=== PATIENT | male | born 1960 | race Caucasian/White ===

== ENCOUNTER 2018-10-17 08:22 | Outpatient (CLI) | payer OTHER, SELFPAY ==
[2018-10-17 09:14] LABS: #Eosinphils 0.1 thou/uL (0.0-0.7); #Lymphocytes 2.6 thou/uL (1.20-3.40); #Monocytes 0.8 thou/uL (0.11-0.59); %Eosinophils 0.8 % (0.0-10.0); %Lymphocytes 22.3 % (21.0-51.0); %Monocytes 7.1 % (0.0-10.0); %Neutrophils 69.8 % (42.0-75.0); Hemoglobin 13.9 g/dL (14.0-18.0); Mean Corpuscular HGB CONC 33.1 g/dL (32.0-36.0); Mean Corpuscular Hemoglobin 32.8 pg (27.0-31.0); Mean Corpuscular Volume 99.1 fL (78.0-98.0); Mean Platelet Volume 6.7 fL (7.4-10.4); Platelet Count 359 thou/uL (130-400); RBC Distribution Width 10.6 % (11.5-14.5); Red Blood Cell (RBC) Count 4.24 mill/uL (4.70-6.10); White Blood Cell (WBC) Count 11.4 thou/uL (4.8-10.8)
--- NOTE | 2018-10-17 09:24 | RAD ---
Chest 2 views HISTORY: Chest pain. Preop. COMPARISON: 06/21/2012. FINDINGS: Cardiac silhouette and pulmonary vasculature are unremarkable. Mediastinum is midline. Nipp le shadows overlie the lung bases. No confluent airspace consolidation, pneumothorax, or pleural fluid are apparent. IMPRESSION: No active cardiopulmonary abnormalities are demonstrated.
[2018-10-17 12:41] LABS: ALT (SGPT) 21 U/L (8-55); AST (SGOT) 12 U/L (5-34); Albumin 4.1 g/dL (3.5-5.0); Alkaline Phosphatase 88 U/L (40-150); Anion Gap 17 mmol/L (10-20); BUN (Urea Nitrogen) 9 mg/dL (8.4-25.7); Bilirubin, Total 0.2 mg/dL (0.2-1.2); Calc. Creatinine Clearance 0 mL/min (70-130); Calcium 9.7 mg/dL (7.8-10.44); Carbon Dioxide 25 mmol/L (22-29); Chloride 97 mmol/L (98-107); Estimated GFR-MDRD Greater than 90; Globulin 3.2 g/dL (2.4-3.5); Glucose 255 mg/dL (70-105); Potassium 3.9 mmol/L (3.5-5.1); Protein, Total 7.3 g/dL (6.0-8.3); Sodium 135 mmol/L (136-145)
== END 2018-10-17 08:23 | disposition home or self-care (01) ==
LOC: LABBT 08:22
PROVIDERS: ATTEND Internal Medicine Cardiovascular Disease
DX: Z01.818 Encounter for other preprocedural examination (principal); R94.39 Abnormal result of other cardiovascular function study
CPT/HCPCS: 71046; 80053; 85025; 93005; 93010

== ENCOUNTER 2018-10-20 05:42 | Inpatient (IN) | payer OTHER ==
[2018-10-20] MEDS ORDERED: Heparin 10,000 UNITS/1 ML VIAL ONE (06:42)
[2018-10-20 06:59] LABS: Cardiac Risk 3.6 (Less than 4.5)
[2018-10-20] MEDS ORDERED: Midazolam HCl 2 mg/2 ml Vial ONE (07:15)
[2018-10-20] MEDS ORDERED: Fentanyl 100 MCG/2 ML VIAL ONE (07:15)
[2018-10-20] MEDS ORDERED: Protamine Sulfate 50 MG/5 ML VIAL ONE (07:27)
[2018-10-20] MEDS ORDERED: Sodium Chloride 0.9% 200 ML IV PRN (07:57)
[2018-10-20] MEDS ORDERED: Acetaminophen/Codeine 30-300mg Tablet PO PRN ×2 (07:57)
[2018-10-20] MEDS ORDERED: Nitroglycerin 0.4 MG TAB (25 Tab Bottle) SL PRN (07:57)
[2018-10-20] MEDS ORDERED: Sodium Chloride 0.9% 1,000 ML IV SCH (08:00)
[2018-10-20] MEDS ORDERED: Cilostazol 100 MG TAB PO SCH (09:00)
[2018-10-20] MEDS ORDERED: Aspirin 81 mg Enteric Coated Tablet PO SCH (09:00)
[2018-10-20] MEDS: Lisinopril/Hydrochlorothiazide 20/25 mg Tablet PO SCH (10:04)
[2018-10-20] MEDS: Gabapentin 300 MG CAP PO SCH ×2 (10:04→20:32)
[2018-10-20] MEDS ORDERED: Iopamidol 370 76% 100 ML VIAL ONE (11:29)
[2018-10-20] MEDS ORDERED: Iopamidol 370 76% 50 ML VIAL FS ONE (11:29)
[2018-10-20] MEDS: glipiZIDE 5 MG TAB PO SCH (16:08)
[2018-10-20] MEDS ORDERED: Communication Order-Pharmacy FS ONE (17:27)
[2018-10-20 17:57] LABS: Hemoglobin A1c 8.2 % (4.0-6.0)
[2018-10-20] MEDS ORDERED: Calcium Carbonate 500 MG ChewTAB PO PRN (18:02)
[2018-10-20] MEDS ORDERED: Dextrose 50% Abboject 50 ML SYRINGE SLOW IVP PRN (18:02)
[2018-10-20] MEDS ORDERED: Benzonatate 100 MG CAP PO PRN (18:02)
[2018-10-20] MEDS ORDERED: Ondansetron ODT 4 MG TAB PO PRN (18:02)
[2018-10-20] MEDS ORDERED: Sodium Chloride 0.65% Nasal 44 ML BOT EA NARE PRN (18:02)
[2018-10-20] MEDS ORDERED: hydrALAZINE 20 MG/ML VIAL SLOW IVP PRN (18:02)
[2018-10-20] MEDS ORDERED: Diabetic Tussin 200 MG/10 ML UDCUP PO PRN (18:02)
[2018-10-20] MEDS ORDERED: Bisacodyl 5 MG TAB PO PRN (18:02)
[2018-10-20] MEDS ORDERED: Dextrose 5% in Water 1,000 ML IV PRN (18:02)
[2018-10-20] MEDS ORDERED: Ondansetron PF 4 MG/2 ML Vial IVP PRN (18:02)
[2018-10-20] MEDS ORDERED: cloNIDine 0.1 MG TAB PO PRN (18:02)
[2018-10-20] MEDS ORDERED: HumaLOG 300 UNITS/3 ML VIAL SC PRN ×2 (18:02)
[2018-10-20] MEDS ORDERED: Acetaminophen 500 MG TAB PO PRN (18:02)
--- NOTE | 2018-10-20 18:30 | PDOC.PN ---
- Subjective Encounter Start Date: 10/20/18 Encounter Start Time: 18:28 - Objective Vital Signs & Weight: Vital Signs (12 hours) Temp Pulse Resp BP Pulse Ox 10/20/18 16:02 97.4 F L 80 18 162/81 H 92 L 10/20/18 11:26 97.9 F 68 18 145/73 H 92 L 10/20/18 09:25 98.0 F 74 17 158/78 H 92 L Weight Weight 203 lb 9.6 oz Dx/Plan - Plan * .
[2018-10-20] MEDS ORDERED: PROVENTIL INHALER 6.7 G (200 INHALATIONS) INH PRN (18:35)
--- NOTE | 2018-10-20 19:15 | CON ---
DATE OF CONSULTATION: 10/20/2018 PRIMARY CARE PHYSICIAN: Dionisio Tony MD REASON FOR CONSULTATION: Medical management of diabetes. HISTORY OF PRESENTING ILLNESS: Mr. Richmond is a very pleasant 57-year-old male with past medical history of diabetes mellitus with neuropathy as well as history of peripheral arterial disease, hypertension, and dyslipidemia, who presented as a direct admit after cardiac catheterization. History is mainly obtained by the patient himself and electronic medical records have been reviewed. Mr. Richmond reports that he was referred to Dr. Hidalgo in the [facility]iology [facility] by his primary care physician about 2 or 3 months ago. He was sent over there because of some issues with circulation of Mr. Richmond's legs. He reports that he got workup done by Dr. Hidalgo in the office what sounds like GUILLERMINA and maybe angiography and he was found to have some arterial occlusion in his legs. I am not sure exactly how much and what blockages he has had. He reports during that workup, he underwent a treadmill stress test, which was reportedly abnormal, so he was to undergo cardiac catheterization electively. This was done today by Dr. Hidalgo and he is now admitted to tele floor as a cardiac cath showed severe 3-vessel coronary artery disease and he is scheduled to undergo a coronary artery bypass graft tomorrow morning. Internal Medicine Team has been consulted for medical management. At this time, the patient has no chest pain, orthopnea, PND, shortness of breath, palpitations, or lightheadedness. No paresthesias. Denies any dyspnea on exertion in the last few months either. He does report that his legs are numb because of poor circulation. PAST MEDICAL HISTORY: 1. Diabetes mellitus. 2. Hypertension. 3. Peripheral arterial disease. 4. Dyslipidemia. 5. Peripheral neuropathy. PAST SURGICAL HISTORY: Cardiac catheterization 10/20/2018, which shows 3-vessel coronary artery disease. PSYCHIATRIC HISTORY: No anxiety. No depression. SOCIAL HISTORY: The patient is a chronic smoker, smoking about a half to one pack per day. No history of drug or alcohol abuse. FAMILY HISTORY: No significant family history of diabetes or stroke. CODE STATUS: Full code discussed with the patient. ALLERGIES: NO KNOWN MEDICATION ALLERGIES. HOME MEDICATIONS: 1. Glipizide XL 5 mg p.o. b.i.d. 2. Gabapentin 1 tablet p.o. b.i.d. 3. Cilostazol 50 mg p.o. b.i.d. 4. Atorvastatin 40 mg daily. 5. Lisinopril/hydrochlorothiazide 20/25 mg daily. 6. Metformin 1000 mg p.o. b.i.d. 7. Lisinopril 20 mg daily. 8. Ascorbic acid 500 mg daily. 9. Xarelto one tablet p.o. b.i.d. LABORATORY DATA: Labs are reviewed from today. His hemoglobin A1c is 8.2. His last hemoglobin A1c was 8.3 in July 2018 and his hemoglobin A1c has been running around 7.5 the entire last 2 or 3 years. Lipid panel is unremarkable with triglycerides 127, total cholesterol 109, LDL 54, HDL 30. His CBC and serum chemistries are reviewed from 10/17/2018; WBCs 11.4, hemoglobin 13.9, platelet count 359. Sodium 135, potassium 3.9, BUN 9, creatinine 0.69. Blood sugar on 10/17/2018, 255. Liver enzymes unremarkable. Chest x-ray done on 10/17/2018, by my review shows no evidence of pleural effusion, edema, or infiltrate. PHYSICAL EXAMINATION: VITAL SIGNS: Most recent temperature 97.4, pulse of 80, respirations 18, saturating 92% on room air, and blood pressure 162/81. GENERAL: No acute distress. He is eating dinner. He is very pleasant, awake, alert, and oriented x3. HEENT: Mucous membrane is moist and pink. No oropharyngeal exudate or erythema. Head is normocephalic and atraumatic. Pupils are equal and reactive to light and accommodation. Extraocular movement intact. NECK: Supple without any lymphadenopathy, JVD, or bruit. CHEST: Clear to auscultation without any wheezing, rales, or rhonchi. Rate rhythm is regular without any murmurs, rubs, or gallops. ABDOMEN: Soft, nontender, and nondistended with positive bowel sounds. EXTREMITIES: Free of any cyanosis, clubbing, or edema. NEUROLOGIC: Nonfocal. SKIN: Free of any rashes or bruises. Feels warm and dry to touch. PSYCHIATRIC: Normal affect. IMPRESSION AND PLAN: 1. Three-vessel coronary artery disease. The patient is on aspirin, atorvastatin, as well as lisinopril and these will be continued. He has been evaluated by Cardiovascular Surgery by Dr. Alfredo and is on scheduled to undergo coronary artery bypass graft in the morning. He is n.p.o. after midnight. We will follow along. Further care as per Cardiology and Cardiothoracic Surgery. 2. Diabetes mellitus, it is uncontrolled. At this time, we will hold the metformin to avoid any acidosis or renal insufficiency, and continue the glipizide. We will add moderate insulin sliding scale and check blood sugar before meals and at bedtime. 3. Dyslipidemia. Continue atorvastatin for now. 4. History of peripheral arterial disease. Continue aspirin, statin, and Pletal. Plan as per Cardiovascular Surgery. 5. Hypertension, currently controlled. We will resume his lisinopril/hydrochlorothiazide. At this time, he has not been started on any beta carmella and we will defer the decision to Cardiology. 6. We will check labs including CBC and BMP in the morning. 7. Add p.r.n. antihypertensives and other p.r.n. medication including nebulizer and albuterol as needed for shortness of breath or wheezing. 8. Peripheral neuropathy. Restart Neurontin 300 mg p.o. b.i.d. DISPOSITION: Mr. Richmond is currently being admitted under Cardiology services for coronary artery disease requiring coronary artery bypass graft tomorrow morning. Internal Medicine Team will follow along. Thank you for letting us participate in the care of your patient. Job ID: [id number]
[2018-10-20] MEDS ORDERED: Lisinopril 20 MG TAB PO SCH (21:00)
[2018-10-20] MEDS ORDERED: Atorvastatin Calcium 40 MG TAB PO SCH (21:00)
[2018-10-20] MEDS ORDERED: Senokot S 8.6-50 MG TAB PO PRN (21:00)
--- NOTE | 2018-10-21 00:17 | CON ---
DATE OF CONSULTATION: 10/20/2018 HISTORY: This is a 57-year-old gentleman, referred to Dr. Hidalgo in July of this year for bilateral calf claudications, right greater than left, as well as some numbness in his feet. His EKG showed poor R-wave progression, and a nuclear stress study was done, showing an ejection fraction of 43% with inferior wall scar and some anterior wall ischemia. He underwent cardiac catheterization today, showing severe 3-vessel coronary artery disease with subtotal right coronary stenosis with distal PDA disease as well and [id number] and [id number] filling of his posterior lateral system. His LAD had severe calcification in its proximal third with significant stenosis in the ostium. Circumflex demonstrated 2 obtuse marginals. The first of which was rather small with a severe stenosis as well as second with significant disease. Small diagonal with disease. LVEF appeared preserved on left ventricular evaluation. PAST MEDICAL HISTORY: Significant for diabetes mellitus, poorly controlled with hemoglobin A1c is in the 7 to 8 range; hypertension; dyslipidemia; longstanding smoking history including 2 packs per day until about July of this year when he has cut back and now smoking about 2 cigarettes a day; and he used to drink regularly, but stopped this about 2 months ago. REVIEW OF SYSTEMS: He has claudication at 50 yards. He has nocturia x3 to x4, which is improved since he stopped drinking. Denies constipation or diarrhea. He has no symptoms to suggest a TIA or stroke. He did get chest tightness and dyspnea with his stress test, but in general, denies chest tightness. He does admit to wheezing and productive cough, particularly when he lies down. PHYSICAL EXAMINATION: GENERAL: He is alert, cooperative gentleman, although a rather poor historian with no real grasp of his medical problems that I can tell. His weight is listed at 203 pounds, height 5 feet 11 inches. NECK: He has no carotid bruits. LUNGS: He has upper airway rhonchi with no wheezes. CARDIAC: Distant heart sounds. Regular rhythm. No murmurs. ABDOMEN: Obese, nontender. I am unable to palpate any aneurysm. EXTREMITIES: He has a palpable left femoral pulse. He has a dressing on the right groin from catheterization today. He has no popliteal or pedal pulses. His left foot is pink and right foot is slightly paler. He has no peripheral edema. PLAN: At this time, for multivessel coronary bypass grafting to the LAD, second OM, PDA, and possibly first OM. Informed consent has been obtained. Job ID: [id number]
[2018-10-21] MEDS: Lisinopril/Hydrochlorothiazide 20/25 mg Tablet PO SCH (05:44)
[2018-10-21] MEDS ORDERED: CEFAZOLIN 2 GM in Premix Bag 1 BAG IVPB SCH (06:00)
[2018-10-21] MEDS ORDERED: Albumin 5% 500 ML ONE (06:15)
[2018-10-21] MEDS ORDERED: Heparin 10,000 UNITS/1 ML VIAL 30,000 UNITS in Sodium Chloride 0.9% 1,000 ML FS SCH (07:00)
[2018-10-21] MEDS ORDERED: Fentanyl 250 MCG/5 ML VIAL ONE (07:20)
[2018-10-21] MEDS ORDERED: Midazolam HCl 5 mg/5 ml Vial ONE (07:20)
[2018-10-21] MEDS ORDERED: Insulin Regular 300 UNITS/3 ML VIAL ONE (08:19)
[2018-10-21] MEDS ORDERED: Phenylephrine HCL 10 MG/ML VIAL ONE (10:26)
[2018-10-21] MEDS ORDERED: PHENYLEPHRINE-NS 100 MCG/ML 10 ML SYRINGE ONE ×2 (10:26→17:35)
[2018-10-21] MEDS ORDERED: Promethazine HCl 25 MG/ML VIAL IM PRN (11:43)
[2018-10-21] MEDS ORDERED: Potassium Chloride 20 MEQ/100 ML PREMIX BAG IVPB PRN (11:43)
[2018-10-21] MEDS ORDERED: Mag-Al 1200 mg/1200 mg/30 ML UDCUP PO PRN (11:43)
[2018-10-21] MEDS ORDERED: Hetastarch 6% 500 ML 500 ML IVPB PRN (11:43)
[2018-10-21] MEDS ORDERED: Bisacodyl 5 MG TAB PO PRN (11:43)
[2018-10-21] MEDS ORDERED: Nitroglycerin 50 MG/250 ML BOT 250 ML IVPB PRN (11:43)
[2018-10-21] MEDS ORDERED: Acetaminophen 325 MG TAB PO PRN (11:43)
[2018-10-21] MEDS ORDERED: Guaifenesin DM 100-10/5 ML UDCUP PO PRN (11:43)
[2018-10-21] MEDS ORDERED: Bisacodyl 10 MG SUPP PR PRN (11:43)
[2018-10-21] MEDS ORDERED: DOPamine 400 MG/D5W 250 ML 250 ML IVPB PRN (11:43)
[2018-10-21] MEDS ORDERED: Ondansetron PF 4 MG/2 ML Vial IVP PRN (11:43)
[2018-10-21] MEDS ORDERED: hydrALAZINE 20 MG/ML VIAL SLOW IVP PRN (11:43)
[2018-10-21] MEDS ORDERED: Morphine 2 MG/ML SYRINGE SLOW IVP PRN (11:43)
[2018-10-21] MEDS ORDERED: Fentanyl 100 MCG/2 ML VIAL SLOW IVP PRN ×2 (11:43)
[2018-10-21] MEDS ORDERED: niCARdipine HCl 25 MG in Sodium Chloride 0.9% 250 ML 240 ML IVPB PRN (11:43)
[2018-10-21] MEDS ORDERED: Post-Op Insulin Drip Protocol IVPB ONE (11:43)
[2018-10-21] MEDS ORDERED: HUMULIN R 100 UNITS in Sodium Chloride 0.9% 100 ML IVPB SCH (11:56)
[2018-10-21] MEDS ORDERED: Insulin Regular 300 UNITS/3 ML VIAL SC PRN (11:56)
[2018-10-21] MEDS ORDERED: Dextrose 50% Abboject 50 ML SYRINGE SLOW IVP PRN (11:56)
[2018-10-21] MEDS ORDERED: Dextrose 5% in Water 1,000 ML IV PRN (11:56)
[2018-10-21] MEDS ORDERED: Magnesium 2 GM/50 ML 2 GM in Premix Bag 1 BAG IVPB SCH (12:15)
[2018-10-21 12:24] LABS: Actual Bicarbonate (HCO3a) 22.8 mEq/L (22-28); Base Excess (BEa) -3.8 mEq/L (-2.0 to +3.0); CO2 Tension 47.8 mmHg (35.0-45.0); Calcium, Ionized 1.11 mmol/L (1.12-1.30); Carboxyhemoglobin (COHb) 1.2 gm% (0.0-3.0); Hemoglobin (Hb) 12.1 g/dL (14.0-18.0); O2 Tension (PaO2) 128.4 mmHg (80.0-100.0); Potassium - ABG Lab 3.96 mmol/L (3.70-5.30)
[2018-10-21 12:26] LABS: Puncture Site ALINE
--- NOTE | 2018-10-21 12:32 | RAD ---
XR Chest 1 View Portable History: [Open-heart surgery] Comparison: Chest radiograph October 17, 2018 Findings: The patient is intubated with endotracheal tube tip at the level of clavicles. Right subcla vian central venous catheter is present. Subclavian central venous catheter sits at the inferior SVC. Mild atelectasis within lingula. No significant pneumothorax. New multiple midline sternotomy wires. Impression: Expected postoperative findings without complication.
[2018-10-21 12:33] LABS: #Eosinphils 0.1 thou/uL (0.0-0.7); #Lymphocytes 1.5 thou/uL (1.20-3.40); #Monocytes 0.8 thou/uL (0.11-0.59); #Neutrophils 17.6 thou/uL (1.40-6.50); %Basophils 0.2 % (0.0-1.0); %Eosinophils 0.4 % (0.0-10.0); %Lymphocytes 7.5 % (21.0-51.0); %Monocytes 3.8 % (0.0-10.0); %Neutrophils 88.1 % (42.0-75.0); Hemoglobin 11.5 g/dL (14.0-18.0); Mean Corpuscular HGB CONC 33.4 g/dL (32.0-36.0); Mean Corpuscular Hemoglobin 33.3 pg (27.0-31.0); Mean Corpuscular Volume 99.6 fL (78.0-98.0); Mean Platelet Volume 6.5 fL (7.4-10.4); Platelet Count 222 thou/uL (130-400); RBC Distribution Width 10.6 % (11.5-14.5); Red Blood Cell (RBC) Count 3.45 mill/uL (4.70-6.10); White Blood Cell (WBC) Count 19.9 thou/uL (4.8-10.8)
[2018-10-21] MEDS: glipiZIDE 5 MG TAB PO SCH (12:35)
[2018-10-21] MEDS: Ketorolac Tromethamine 30 MG/ML VIAL IVP SCH ×3 (12:37→23:56)
[2018-10-21] MEDS: Sodium Chloride 0.9% 1,000 ML IV SCH ×2 (12:40→22:52)
[2018-10-21 12:54] LABS: Anion Gap 13 mmol/L (10-20); BUN (Urea Nitrogen) 10 mg/dL (8.4-25.7); Calc. Creatinine Clearance 135 mL/min (70-130); Calcium 7.8 mg/dL (7.8-10.44); Carbon Dioxide 23 mmol/L (22-29); Chloride 107 mmol/L (98-107); Estimated GFR-MDRD Greater than 90; Glucose 157 mg/dL (70-105); Potassium 4.4 mmol/L (3.5-5.1); Sodium 139 mmol/L (136-145)
[2018-10-21 13:11] LABS: INR-International Normal Ratio 1.3; PTT 32.2 SEC (22.9-36.1); Prothrombin Time 16.5 SEC (12.0-14.7)
[2018-10-21] MEDS: CEFAZOLIN 2 GM in Premix Bag 1 BAG IVPB SCH ×2 (14:38→22:51)
[2018-10-21 15:22] LABS: Actual Bicarbonate (HCO3a) 23.6 mEq/L (22-28); Base Excess (BEa) -1.9 mEq/L (-2.0 to +3.0); CO2 Tension 43.4 mmHg (35.0-45.0); Calcium, Ionized 1.07 mmol/L (1.12-1.30); Carboxyhemoglobin (COHb) 0.9 gm% (0.0-3.0); Hemoglobin (Hb) 11.2 g/dL (14.0-18.0); O2 Tension (PaO2) 100.1 mmHg (80.0-100.0); Potassium - ABG Lab 3.91 mmol/L (3.70-5.30); pH, Arterial 7.35 (7.35-7.45)
[2018-10-21 15:37] LABS: Puncture Site ALINE
--- NOTE | 2018-10-21 16:10 | PDOC.PN ---
- Subjective Encounter Start Date: 10/21/18 Encounter Start Time: 16:09 Subjective: s/p 4 vessel CABG today and extubated.seen in CCU -: feels OK.care discussed w at bedside. -: no SOB/CP/dizziness etc - Objective MAR Reviewed: Yes Vital Signs & Weight: Vital Signs (12 hours) Temp Pulse Resp BP Pulse Ox 10/21/18 15:25 96 10/21/18 15:20 70 97/48 L 10/21/18 13:53 12 10/21/18 13:51 71 120/51 L 10/21/18 13:00 97.5 F L 10/21/18 12:30 12 99 10/21/18 12:20 72 124/49 L 10/21/18 05:44 68 146/75 H Weight Weight 203 lb 9.6 oz Most Recent Monitor Data Heart Rate from ECG 77 NIBP 113/65 NIBP BP-Mean 81 Respiration from ECG 18 SpO2 94 I&O: 10/20/18 10/21/18 10/22/18 06:59 06:59 06:59 Intake Total 2700 1050 Output Total 1250 585 Balance 1450 465 Result Diagrams: 10/21/18 12:18 10/21/18 12:18 Additional Labs: Accuchecks 10/21/18 10/21/18 10/21/18 13:11 12:17 10:33 POC Glucose 147 H 144 H 171 H 10/21/18 10/21/18 10/21/18 09:28 08:12 05:50 POC Glucose 167 H 184 H 157 H 10/20/18 20:37 POC Glucose 169 H Phys Exam - Physical Examination Constitutional: NAD awake and alert HEENT: PERRLA, moist MMs, sclera anicteric, oral pharynx no lesions Neck: no nodes, no JVD, supple, full ROM Respiratory: no wheezing, no rales, no rhonchi, clear to auscultation bilateral Chest tube in place Cardiovascular: RRR, no significant murmur Gastrointestinal: soft, non-tender, no distention, positive bowel sounds Musculoskeletal: no edema, pulses present Neurological: non-focal, normal sensation, moves all 4 limbs Psychiatric: normal affect, A&O x 3 Skin: no rash Dx/Plan (1) CAD (coronary artery disease) Code(s): I25.10 - ATHSCL HEART DISEASE OF [place] CORONARY ARTERY W/O ANG PCTRS Status: Chronic Comment: s/p CABG 10/21/18. cont ASA,statin.Per primary cardiology team.HD stable and extubated (2) DM2 (diabetes mellitus, type 2) Status: Chronic Comment: Uncontrolled. on Insulin drip fornow per Post-op protocol (3) HTN (hypertension) Code(s): I10 - ESSENTIAL (PRIMARY) HYPERTENSION Status: Chronic Comment: restart Lisinopril/HCTZ when OK w cardiology and BP better.monitor (4) PAD (peripheral artery disease) Code(s): I73.9 - PERIPHERAL VASCULAR DISEASE, UNSPECIFIED Status: Chronic Comment: cont ASA,statin.restart Pletal if Ok w Cardiology - Plan plan discussed w/ family, respiratory therapy, incentive spirometry, DVT proph w /SCDs HD stable post CABG X4 vessel -: IM team will follow -: AM labs * .
[2018-10-21] MEDS: HYDROcodone/Acetaminophen 5/325 mg Tablet PO PRN ×3 (16:35→22:50)
[2018-10-21] MEDS ORDERED: Magnesium 5 GM/10 ML VIAL ONE (17:35)
[2018-10-21] MEDS ORDERED: Heparin 30,000 units/30 ml VIAL ONE (17:35)
[2018-10-21] MEDS ORDERED: Rocuronium Bromide 10 MG/ML (10ML VIAL) ONE (17:35)
[2018-10-21] MEDS ORDERED: Calcium Chloride 1 GM/10 ML Abboject SYRINGE ONE (17:35)
[2018-10-21] MEDS ORDERED: Potassium Chloride 60 MEQ/30 ML VIAL ONE (17:35)
[2018-10-21] MEDS ORDERED: Papaverine 60 MG/2 ML VIAL ONE (17:35)
[2018-10-21] MEDS ORDERED: Heparin 5,000 UNITS/ML VIAL ONE (17:35)
[2018-10-21] MEDS ORDERED: Thrombin 5000 UNITS/5 ML VIAL ONE (17:35)
[2018-10-21] MEDS ORDERED: Succinylcholine Chloride 20 MG/ML 10 ml SYRINGE FS ONE (17:35)
[2018-10-21] MEDS ORDERED: Mannitol 12.5 GM/50 ML ONE (17:35)
[2018-10-21] MEDS ORDERED: ePHEDrine 50 MG/ML VIAL ONE (17:35)
[2018-10-21] MEDS ORDERED: Protamine Sulfate 250 MG/25 ML VIAL ONE (17:35)
[2018-10-21] MEDS ORDERED: Aminocaproic Acid 5 GM/20 ML VIAL ONE (17:35)
[2018-10-21] MEDS ORDERED: Glycopyrrolate 0.2 MG/ML 5 ML SYRINGE ONE (17:35)
[2018-10-21] MEDS ORDERED: PROPOFOL 200 MG/20 ML VIAL ONE (17:35)
[2018-10-21] MEDS ORDERED: Vecuronium 10 MG VIAL ONE (17:35)
[2018-10-21] MEDS ORDERED: Sodium Bicarb 50 MEQ/50 ML VIAL ONE (17:35)
[2018-10-21] MEDS ORDERED: Cardioplegic Soln 1,000 ML BAG ONE (17:35)
[2018-10-21 18:11] LABS: Hemoglobin 10.4 g/dL (14.0-18.0)
[2018-10-21 18:24] LABS: Potassium 4.1 mmol/L (3.5-5.1)
[2018-10-21] MEDS ORDERED: Atorvastatin Calcium 20 MG TAB PO SCH (21:00)
[2018-10-21] MEDS ORDERED: Famotidine/PF 20 mg/2ml Vial SLOW IVP SCH (21:00)
[2018-10-22] MEDS: HYDROcodone/Acetaminophen 5/325 mg Tablet PO PRN ×4 (03:58→20:18)
[2018-10-22 05:02] LABS: #Lymphocytes 1.7 thou/uL (1.20-3.40); #Monocytes 0.9 thou/uL (0.11-0.59); #Neutrophils 9.6 thou/uL (1.40-6.50); %Basophils 0.3 % (0.0-1.0); %Eosinophils 0.2 % (0.0-10.0); %Lymphocytes 13.7 % (21.0-51.0); %Monocytes 7.1 % (0.0-10.0); %Neutrophils 78.7 % (42.0-75.0); Hemoglobin 10.3 g/dL (14.0-18.0); Mean Corpuscular HGB CONC 33.3 g/dL (32.0-36.0); Mean Corpuscular Hemoglobin 33.5 pg (27.0-31.0); Platelet Count 222 thou/uL (130-400); RBC Distribution Width 10.6 % (11.5-14.5); Red Blood Cell (RBC) Count 3.07 mill/uL (4.70-6.10); White Blood Cell (WBC) Count 12.2 thou/uL (4.8-10.8)
[2018-10-22 05:19] LABS: Anion Gap 11 mmol/L (10-20); BUN (Urea Nitrogen) 11 mg/dL (8.4-25.7); Calc. Creatinine Clearance 166 mL/min (70-130); Calcium 7.9 mg/dL (7.8-10.44); Carbon Dioxide 24 mmol/L (22-29); Chloride 106 mmol/L (98-107); Estimated GFR-MDRD Greater than 90; Glucose 111 mg/dL (70-105); Sodium 137 mmol/L (136-145)
[2018-10-22] MEDS: Ketorolac Tromethamine 30 MG/ML VIAL IVP SCH (05:41)
[2018-10-22] MEDS: CEFAZOLIN 2 GM in Premix Bag 1 BAG IVPB SCH (06:23)
[2018-10-22] MEDS ORDERED: Nitroglycerin 0.4 MG TAB (25 Tab Bottle) SL PRN (06:55)
[2018-10-22] MEDS ORDERED: Artificial Tears 18 DROP/0.9 ML EA EYE PRN (06:55)
[2018-10-22] MEDS ORDERED: Bisacodyl 10 MG SUPP PR PRN (06:55)
[2018-10-22] MEDS ORDERED: Guaifenesin DM 100-10/5 ML UDCUP PO PRN (06:55)
[2018-10-22] MEDS ORDERED: diphenhydrAMINE 25 MG CAP PO PRN (06:55)
[2018-10-22] MEDS ORDERED: Bisacodyl 5 MG TAB PO PRN (06:55)
[2018-10-22] MEDS ORDERED: Zolpidem Tartrate 5 MG TAB PO PRN (06:55)
[2018-10-22] MEDS ORDERED: Dextrose 50% Abboject 50 ML SYRINGE SLOW IVP PRN ×2 (06:55→14:55)
[2018-10-22] MEDS ORDERED: Mineral Oil ENEMA PR PRN (06:55)
[2018-10-22] MEDS ORDERED: Dextrose 5% in Water 1,000 ML IV PRN ×2 (06:55→14:55)
[2018-10-22] MEDS ORDERED: Mag-Al 1200 mg/1200 mg/30 ML UDCUP PO PRN (06:55)
--- NOTE | 2018-10-22 07:35 | RAD ---
CHEST 1 VIEW: Date: 10/22/18 INDICATION: Status post open heart surgery. COMPARISON: Prior exam dated 10/21/18. IMPRESSION: Patient has been extubated. Right subclavian central venous catheter is unchanged. Mediastinal drains have been removed. Mild cardiomegaly is stable. Lungs are clear. No pneumothorax is evident. POS: BH
[2018-10-22] MEDS ORDERED: HYDROcodone/Acetaminophen 5/325 mg Tablet PO PRN (08:00)
[2018-10-22] MEDS: Famotidine 20 MG TAB PO SCH ×2 (08:06→20:20)
[2018-10-22] MEDS: Ascorbic Acid 500 mg Chewable Tablet PO SCH (08:06)
[2018-10-22] MEDS: Aspirin 325 mg Enteric Coated Tablet PO SCH (08:06)
[2018-10-22] MEDS: Gabapentin 300 MG CAP PO SCH ×2 (08:06→20:20)
[2018-10-22] MEDS ORDERED: Aspirin 325 MG TAB PO SCH (09:00)
[2018-10-22] MEDS ORDERED: Ipratropium Bromide 0.03% Nasal Inhaler 30 ml Bottle EA NARE SCH (11:15)
[2018-10-22] MEDS ORDERED: guaiFENesin ER 600 MG TAB PO SCH (11:15)
--- NOTE | 2018-10-22 13:50 | CON ---
DATE OF CONSULTATION: 10/22/2018 HISTORY OF PRESENT ILLNESS: Mr. Richmond is a 58-year-old gentleman with diabetes , who underwent coronary artery bypass grafting yesterday. He was weaned and extubated per protocol. He was seen because of his presence in Critical Care Unit. His only complaint is that he is having sinus drainage and having trouble clearing and coughing all this stuff up. He is actually using his incentive spirometer and is getting up to 2000 on that. He reports only minimal chest discomfort after surgery. He is a smoker, but was down to 2 to 3 cigarettes a day prior to admission and says he has done with tobacco. PAST MEDICAL HISTORY: Remarkable for; 1. Diabetes. 2. Hypertension. 3. Lipid disorder. 4. Long history of tobacco use, but no history of COPD or asthma. 5. Long history of alcohol use, but none for a month. He said he quit drinking because his told him the carbohydrates and beer turned his sugar and he was having trouble controlling his diabetes. FAMILY HISTORY: Negative for lung disease in early age. SOCIAL HISTORY: He does mention that he is smoking up until admission. He has not had alcohol in a month. ALLERGIES: HE REPORTS NO DRUG ALLERGIES. REVIEW OF SYSTEMS: Ten-point review of systems completed, otherwise negative. PHYSICAL EXAMINATION: GENERAL: He is lying flat in bed with no tachypnea or complaints of shortness of breath. VITAL SIGNS: He is afebrile. Respiratory rates in the teens, oximetry is 94% on 3 L, blood pressure is 146/75. HEENT: Pupils are equal. Sclerae are anicteric. Extraocular movements are full. NECK: Supple. No lymphadenopathy. LUNGS: Clear. HEART: Regular rhythm. S1, S2 normal. ABDOMEN: Soft and nontender. EXTREMITIES: Without clubbing, cyanosis, or edema. LABORATORY AND DIAGNOSTIC DATA: White count 12.2, hemoglobin 10.3, platelets 222. Sodium 137, potassium 4, chloride 106, bicarb 24, BUN 11, and creatinine 0.66. Blood gas prior to extubation; pH of 7.35, pCO2 of 43, pO2 of 100. Chest radiograph shows clear lung francisco. IMPRESSION AND PLAN: 1. History of tobacco with no clinical history suggestive of chronic obstructive pulmonary disease. 2. Status post coronary artery bypass grafting, doing well postextubation. 3. Rhinitis and sinus issues prior to admission, nasal ipratropium may help with that. Guaifenesin and nebulized treatments may also help with facilitation of secretion clearance. I will be following for a few days until we are sure he is stable from a pulmonary standpoint. This is a 70 minute consult with greater than 50% of time spent on unit coordinating care. Job ID: [id number] MTDD
[2018-10-22] MEDS ORDERED: HumaLOG 300 UNITS/3 ML VIAL SC PRN (14:55)
--- NOTE | 2018-10-22 14:56 | PDOC.PN ---
- Subjective Encounter Start Date: 10/22/18 Encounter Start Time: 14:54 Subjective: feels better but does not feel hungry -: not much pain at incision site - Objective MAR Reviewed: Yes Vital Signs & Weight: Vital Signs (12 hours) Temp Resp BP Pulse Ox 10/22/18 08:00 97.9 F 12 146/75 H 94 L 10/22/18 07:30 94 L Weight Weight 3.4 oz Most Recent Monitor Data Heart Rate from ECG 76 NIBP 141/69 NIBP BP-Mean 93 Respiration from ECG 17 SpO2 92 I&O: 10/21/18 10/22/18 10/23/18 06:59 06:59 06:59 Intake Total 2700 1954.4 480 Output Total 1250 1585 160 Balance 1450 369.4 320 Result Diagrams: 10/22/18 04:00 10/22/18 04:00 Additional Labs: Accuchecks 10/22/18 10/22/18 10/22/18 11:10 06:05 04:57 POC Glucose 136 H 116 H 112 H 10/22/18 10/22/18 10/22/18 02:56 02:05 00:58 POC Glucose 108 127 H 114 H 10/22/18 10/21/18 10/21/18 00:01 23:02 22:01 POC Glucose 107 86 101 10/21/18 10/21/18 21:01 20:02 POC Glucose 108 129 H Phys Exam - Physical Examination Constitutional: NAD HEENT: PERRLA, moist MMs, sclera anicteric, oral pharynx no lesions Neck: no nodes, no JVD, supple, full ROM Respiratory: no wheezing, no rales, no rhonchi, clear to auscultation bilateral Cardiovascular: RRR, no significant murmur Chest tube in place. Gastrointestinal: soft, non-tender, no distention, positive bowel sounds Musculoskeletal: no edema, pulses present Neurological: non-focal, normal sensation, moves all 4 limbs Psychiatric: normal affect, A&O x 3 Skin: no rash Dx/Plan (1) CAD (coronary artery disease) Code(s): I25.10 - ATHSCL HEART DISEASE OF [place] CORONARY ARTERY W/O ANG PCTRS Status: Chronic Comment: s/p CABG 10/21/18. cont ASA,statin.Per primary cardiology team.HD stable and extubated (2) DM2 (diabetes mellitus, type 2) Status: Chronic Comment: Uncontrolled. insulin drip stopped by primary team. will start ISS ,accucheck achs (3) HTN (hypertension) Code(s): I10 - ESSENTIAL (PRIMARY) HYPERTENSION Status: Chronic Comment: restart Lisinopril/HCTZ when OK w cardiology and BP better.monitor (4) PAD (peripheral artery disease) Code(s): I73.9 - PERIPHERAL VASCULAR DISEASE, UNSPECIFIED Status: Chronic Comment: cont ASA,statin.restart Pletal if Ok w Cardiology - Plan plan discussed w/ family, PT/OT, respiratory therapy, incentive spirometry, DVT proph w/SCDs Blood sugar under control.cont ISS and monitor -: AM labs -: HD stable -: IM team will follow * . Review of Systems - Review of Systems Constitutional: weakness, malaise. negative: fever, chills, sweats, other ENT: negative: Ear Pain, Ear Discharge, Nose Pain, Nose Discharge, Nose Congestion, Mouth Pain, Mouth Swelling, Throat Pain, Throat Swelling, Other Respiratory: negative: Cough, Dry, Shortness of Breath, Hemoptysis, SOB with Excertion, Pleuritic Pain, Sputum, Wheezing Cardiovascular: negative: chest pain, palpitations, orthopnea, paroxysmal nocturnal dyspnea, edema, light headedness, other Gastrointestinal: negative: Nausea, Vomiting, Abdominal Pain, Diarrhea, Constipation, Melena, Hematochezia, Other Genitourinary: negative: Dysuria, Frequency, Incontinence, Hematuria, Retention , Other Musculoskeletal: negative: Neck Pain, Shoulder Pain, Arm Pain, Back Pain, Hand Pain, Leg Pain, Foot Pain, Other Skin: negative: Rash, Lesions, [place], Bruising, Other Neurological: negative: Weakness, Numbness, Incoordination, Change in Speech, Confusion, Seizures, Other - Medications/Allergies Allergies/Adverse Reactions: Allergies Allergy/AdvReac Type Severity Reaction Status Date / Time No Known Allergies Allergy Verified 10/20/18 10:17 Medications: Current Medications Hydrocodone Bitart/Acetaminophen ([place] 5/325) 1 tab PO Q4H PRN PRN Reason: Mild-Moderate Pain (1-5) Hydrocodone Bitart/Acetaminophen ([place] 5/325) 2 tab PO Q4H PRN PRN Reason: Moderate to Severe Pain (6-10) Last Admin: 10/22/18 08:05 Dose: 2 tab Al Hydroxide/Mg Hydroxide (Maalox) 30 ml PO Q4H PRN PRN Reason: Indigestion Albuterol/Ipratropium (Duoneb) 3 ml NEB [id number] PRN PRN Reason: SHORTNESS OF BREATH Albuterol/Ipratropium (Duoneb) 3 ml IPPB TID [facility] Artificial Tears (Tears Naturale) 1 drop EA EYE PRN PRN PRN Reason: Dry Eyes Ascorbic Acid (Vitamin C) 500 mg PO DAILY [facility] Last Admin: 10/22/18 08:06 Dose: 500 mg Aspirin (Ecotrin) 325 mg PO DAILY [facility] Last Admin: 10/22/18 08:06 Dose: 325 mg Atorvastatin Calcium (Lipitor) 40 mg PO HS [facility] Bisacodyl (Dulcolax) 10 mg PO Q12H PRN PRN Reason: Constipation Bisacodyl (Dulcolax) 10 mg [place] Q12H PRN PRN Reason: Constipation Dextrose/Water (Dextrose 50%) 25 gm SLOW IVP PRN PRN PRN Reason: Hypoglycemia Diphenhydramine HCl (Benadryl) 25 mg PO Q6H PRN PRN Reason: Itching & Insomnia or Ethan Shukri Famotidine (Pepcid) 20 mg PO BID [facility] Last Admin: 10/22/18 08:06 Dose: 20 mg Gabapentin (Neurontin) 300 mg PO BID [facility] Last Admin: 10/22/18 08:06 Dose: 300 mg Glucagon (Glucagon) 1 mg IM PRN PRN PRN Reason: Hypoglycemia Guaifenesin (Mucinex) 600 mg PO Q12HR [facility] Guaifenesin/Dextromethorphan (Robitussin Dm) 15 ml PO Q4H PRN PRN Reason: Cough Dextrose/Water (D5w) 1,000 mls @ 0 mls/hr IV .Q0M PRN PRN Reason: Hypoglycemia Ipratropium [place] (Atrovent 0.03%) 0 ml EA NARE BID [facility] Mineral Oil (Fleet Mineral Oil) 133 ml [place] DAILYPRN PRN PRN Reason: Constipation Nitroglycerin (Nitrostat) 0.4 mg SL Q5MIN PRN PRN Reason: Chest Pain Ondansetron HCl (Zofran) 4 mg IVP Q6H PRN PRN Reason: Nausea/Vomiting Sodium Chloride (Flush - Normal Saline) 10 ml IVF Q12HR CAREN Sodium Chloride (Flush - Normal Saline) 10 ml IVF PRN PRN PRN Reason: Saline Flush Zolpidem Tartrate (Ambien) 5 mg PO HSPRN PRN PRN Reason: Insomnia
[2018-10-22] MEDS: HumaLOG 300 UNITS/3 ML VIAL SC PRN (16:15)
[2018-10-22] MEDS: Atorvastatin Calcium 40 MG TAB PO SCH (20:19)
[2018-10-22] MEDS: guaiFENesin ER 600 MG TAB PO SCH (20:20)
[2018-10-22] MEDS: Ipratropium Bromide 0.03% Nasal Inhaler 30 ml Bottle EA NARE SCH (22:01)
[2018-10-23] MEDS: HYDROcodone/Acetaminophen 5/325 mg Tablet PO PRN ×5 (02:18→21:06)
[2018-10-23 05:47] LABS: #Lymphocytes 1.5 thou/uL (1.20-3.40); #Monocytes 1.5 thou/uL (0.11-0.59); #Neutrophils 13.3 thou/uL (1.40-6.50); %Eosinophils 0.2 % (0.0-10.0); %Lymphocytes 9.3 % (21.0-51.0); %Monocytes 9.4 % (0.0-10.0); %Neutrophils 81.1 % (42.0-75.0); Hemoglobin 11.2 g/dL (14.0-18.0); Mean Corpuscular HGB CONC 32.9 g/dL (32.0-36.0); Mean Platelet Volume 7.2 fL (7.4-10.4); Platelet Count 225 thou/uL (130-400); RBC Distribution Width 10.7 % (11.5-14.5); Red Blood Cell (RBC) Count 3.39 mill/uL (4.70-6.10); White Blood Cell (WBC) Count 16.4 thou/uL (4.8-10.8)
[2018-10-23 05:58] LABS: Anion Gap 11 mmol/L (10-20); BUN (Urea Nitrogen) 9 mg/dL (8.4-25.7); Calc. Creatinine Clearance 0 mL/min (70-130); Calcium 8.4 mg/dL (7.8-10.44); Carbon Dioxide 26 mmol/L (22-29); Chloride 102 mmol/L (98-107); Estimated GFR-MDRD Greater than 90; Glucose 176 mg/dL (70-105); Potassium 4.5 mmol/L (3.5-5.1); Sodium 134 mmol/L (136-145)
[2018-10-23] MEDS: guaiFENesin ER 600 MG TAB PO SCH ×2 (08:04→21:05)
[2018-10-23] MEDS: Ascorbic Acid 500 mg Chewable Tablet PO SCH (08:04)
[2018-10-23] MEDS: Gabapentin 300 MG CAP PO SCH ×2 (08:04→21:05)
[2018-10-23] MEDS: Famotidine 20 MG TAB PO SCH ×2 (08:04→21:05)
[2018-10-23] MEDS: Aspirin 325 mg Enteric Coated Tablet PO SCH (08:04)
[2018-10-23] MEDS ORDERED: hydrALAZINE 20 MG/ML VIAL SLOW IVP PRN (08:33)
--- NOTE | 2018-10-23 08:51 | RAD ---
CHEST 1 VIEW: Date: 10/23/18 INDICATION: History of open heart surgery. COMPARISON: Prior exam dated 10/22/18 at 0436 hours. FINDINGS: There is stable cardiomegaly and a right subclavian central venous catheter. Midline sternotomy garcia es and midline mediastinal drain is stable. No confluent air space opacity, pleural effusion, or pneu mothorax is evident. No acute osseous abnormality is evident. IMPRESSION: Stable right subclavian central venous catheter. No acute cardiopulmonary abnormality. POS: BH
[2018-10-23] MEDS: Carvedilol 3.125 MG TAB PO SCH ×2 (09:18→16:50)
[2018-10-23] MEDS: Ipratropium Bromide 0.03% Nasal Inhaler 30 ml Bottle EA NARE SCH ×2 (11:51→21:04)
[2018-10-23] MEDS: HumaLOG 300 UNITS/3 ML VIAL SC PRN (11:51)
--- NOTE | 2018-10-23 14:49 | PDOC.PN ---
- Subjective Encounter Start Date: 10/23/18 Encounter Start Time: 14:47 Subjective: feels better . still poor appetite -: no CP/SOB/palpitation - Objective MAR Reviewed: Yes Vital Signs & Weight: Vital Signs (12 hours) Temp Pulse Pulse Pulse Resp BP BP 10/23/18 12:09 92 89 164/72 H 157/74 H 10/23/18 11:31 72 20 10/23/18 08:00 97.4 F L 77 17 10/23/18 07:34 10/23/18 07:26 75 20 10/23/18 03:00 99.2 F 85 18 BP Pulse Ox Pulse Ox Pulse Ox 10/23/18 12:09 97 92 L 10/23/18 11:31 10/23/18 08:00 176/83 H 96 10/23/18 07:34 91 L 10/23/18 07:26 91 L 10/23/18 03:00 167/77 H 97 Weight Weight 201 lb Most Recent Monitor Data Heart Rate from ECG 78 NIBP 132/67 NIBP BP-Mean 88 Respiration from ECG 20 SpO2 96 I&O: 10/22/18 10/23/18 10/24/18 06:59 06:59 06:59 Intake Total 1954.4 720 Output Total 1585 1820 Balance 369.4 -1100 Result Diagrams: 10/23/18 04:32 10/23/18 04:32 Additional Labs: Accuchecks 10/23/18 10/22/18 10/22/18 05:59 23:51 16:12 POC Glucose 183 H 172 H 168 H Phys Exam - Physical Examination Constitutional: NAD HEENT: PERRLA, moist MMs, sclera anicteric, oral pharynx no lesions Neck: no nodes, no JVD, supple, full ROM Respiratory: no wheezing, no rales, no rhonchi, clear to auscultation bilateral Cardiovascular: RRR, no significant murmur Gastrointestinal: soft, non-tender, no distention, positive bowel sounds Musculoskeletal: no edema, pulses present Neurological: non-focal, normal sensation, moves all 4 limbs Psychiatric: normal affect, A&O x 3 Skin: no rash Dx/Plan (1) CAD (coronary artery disease) Code(s): I25.10 - ATHSCL HEART DISEASE OF [place] CORONARY ARTERY W/O ANG PCTRS Status: Chronic Comment: s/p CABG 10/21/18. cont ASA,statin.Per primary cardiology team.HD stable and extubated (2) Uncontrolled hypertension Code(s): I10 - ESSENTIAL (PRIMARY) HYPERTENSION Status: Acute Comment: add BB. ReStart home lisinopril at lower dose (3) DM2 (diabetes mellitus, type 2) Status: Chronic Comment: Uncontrolled. insulin drip stopped by primary team. will start ISS ,accucheck achs (4) HTN (hypertension) Code(s): I10 - ESSENTIAL (PRIMARY) HYPERTENSION Status: Chronic Comment: restart Lisinopril/HCTZ when OK w cardiology and BP better.monitor (5) PAD (peripheral artery disease) Code(s): I73.9 - PERIPHERAL VASCULAR DISEASE, UNSPECIFIED Status: Chronic Comment: cont ASA,statin.restart Pletal if Ok w Cardiology - Plan * . Review of Systems - Review of Systems Constitutional: weakness, malaise. negative: fever, chills, sweats, other ENT: negative: Ear Pain, Ear Discharge, Nose Pain, Nose Discharge, Nose Congestion, Mouth Pain, Mouth Swelling, Throat Pain, Throat Swelling, Other Respiratory: negative: Cough, Dry, Shortness of Breath, Hemoptysis, SOB with Excertion, Pleuritic Pain, Sputum, Wheezing Cardiovascular: negative: chest pain, palpitations, orthopnea, paroxysmal nocturnal dyspnea, edema, light headedness, other Gastrointestinal: negative: Nausea, Vomiting, Abdominal Pain, Diarrhea, Constipation, Melena, Hematochezia, Other Genitourinary: negative: Dysuria, Frequency, Incontinence, Hematuria, Retention , Other Musculoskeletal: negative: Neck Pain, Shoulder Pain, Arm Pain, Back Pain, Hand Pain, Leg Pain, Foot Pain, Other Skin: negative: Rash, Lesions, [place], Bruising, Other Neurological: negative: Weakness, Numbness, Incoordination, Change in Speech, Confusion, Seizures, Other - Medications/Allergies Allergies/Adverse Reactions: Allergies Allergy/AdvReac Type Severity Reaction Status Date / Time No Known Allergies Allergy Verified 10/20/18 10:17 Medications: Current Medications Hydrocodone Bitart/Acetaminophen ([place] 5/325) 1 tab PO Q4H PRN PRN Reason: Mild-Moderate Pain (1-5) Hydrocodone Bitart/Acetaminophen ([place] 5/325) 2 tab PO Q4H PRN PRN Reason: Moderate to Severe Pain (6-10) Last Admin: 10/23/18 11:51 Dose: 2 tab Al Hydroxide/Mg Hydroxide (Maalox) 30 ml PO Q4H PRN PRN Reason: Indigestion Albuterol/Ipratropium (Duoneb) 3 ml NEB [id number] PRN PRN Reason: SHORTNESS OF BREATH Albuterol/Ipratropium (Duoneb) 3 ml IPPB TID-RT [facility] Last Admin: 10/23/18 11:31 Dose: 3 ml Artificial Tears (Tears Naturale) 1 drop EA EYE PRN PRN PRN Reason: Dry Eyes Ascorbic Acid (Vitamin C) 500 mg PO DAILY [facility] Last Admin: 10/23/18 08:04 Dose: 500 mg Aspirin (Ecotrin) 325 mg PO DAILY [facility] Last Admin: 10/23/18 08:04 Dose: 325 mg Atorvastatin Calcium (Lipitor) 40 mg PO HS [facility] Last Admin: 10/22/18 20:19 Dose: 40 mg Bisacodyl (Dulcolax) 10 mg PO Q12H PRN PRN Reason: Constipation Bisacodyl (Dulcolax) 10 mg [place] Q12H PRN PRN Reason: Constipation Carvedilol (Coreg) 3.125 mg PO BID-[facility] Last Admin: 10/23/18 09:18 Dose: 3.125 mg Dextrose/Water (Dextrose 50%) 25 gm SLOW IVP PRN PRN PRN Reason: Hypoglycemia Diphenhydramine HCl (Benadryl) 25 mg PO Q6H PRN PRN Reason: Itching & Insomnia or Ethan Shukri Famotidine (Pepcid) 20 mg PO BID [facility] Last Admin: 10/23/18 08:04 Dose: 20 mg Gabapentin (Neurontin) 300 mg PO BID [facility] Last Admin: 10/23/18 08:04 Dose: 300 mg Glucagon (Glucagon) 1 mg IM PRN PRN PRN Reason: Hypoglycemia Guaifenesin (Mucinex) 600 mg PO Q12HR [facility] Last Admin: 10/23/18 08:04 Dose: 600 mg Guaifenesin/Dextromethorphan (Robitussin Dm) 15 ml PO Q4H PRN PRN Reason: Cough Hydralazine HCl (Apresoline) 10 mg SLOW IVP Q4H PRN PRN Reason: sbp>170 Dextrose/Water (D5w) 1,000 mls @ 0 mls/hr IV .Q0M PRN PRN Reason: Hypoglycemia Insulin Human Lispro (Humalog) 0 units SC .MILD SLIDING SCALE PRN PRN Reason: Mild Correctional Scale Last Admin: 10/23/18 11:51 Dose: 3 units Insulin Human Lispro (Humalog) 0 units SC .BEDTIME SLIDING SC PRN PRN Reason: Bedtime Correctional Scale Ipratropium [place] (Atrovent 0.03%) 0 ml EA NARE BID [facility] Last Admin: 10/23/18 11:51 Dose: 1 puff Lisinopril (Zestril) 5 mg PO BID [facility] Mineral Oil (Fleet Mineral Oil) 133 ml [place] DAILYPRN PRN PRN Reason: Constipation Nitroglycerin (Nitrostat) 0.4 mg SL Q5MIN PRN PRN Reason: Chest Pain Ondansetron HCl (Zofran) 4 mg IVP Q6H PRN PRN Reason: Nausea/Vomiting Sodium Chloride (Flush - Normal Saline) 10 ml IVF Q12HR [facility] Last Admin: 10/23/18 08:05 Dose: 10 ml Sodium Chloride (Flush - Normal Saline) 10 ml IVF PRN PRN PRN Reason: Saline Flush Zolpidem Tartrate (Ambien) 5 mg PO HSPRN PRN PRN Reason: Insomnia
--- NOTE | 2018-10-23 14:59 | PRG ---
DATE OF SERVICE: 10/23/2018 SUBJECTIVE: Mr. Richmond has no complaints other than chest discomfort. He is afebrile. OBJECTIVE: VITAL SIGNS: Heart rate 72, respirations rate 20, oximetry is 96% on 2 L per minute, and blood pressure is 164/72. LUNGS: Clear. HEART: Regular rhythm. S1 and S2 are normal. ABDOMEN: Soft and nontender. EXTREMITIES: Without edema. DIAGNOSTIC DATA: Chest radiograph shows no new infiltrates. LABORATORY DATA: White count 16.4, hemoglobin 11.2, platelets 225. Sodium 134, potassium 4.5, chloride 102, bicarb 26, BUN 9, and creatinine 0.71. Chest tube output has been 30 mL in the last 24 hours. IMPRESSION: 1. Status post coronary artery bypass grafting. His chest tube drainage is down to a very low level. 2. Diabetes. 3. Hypertension. 4. Long history of tobacco use. 5. Long history of alcohol use, none for a month. 6. He appears to be improving. Hopefully, his chest tubes will be out soon and he can begin ambulating. Job ID: [id number]
[2018-10-23] MEDS ORDERED: Carvedilol 6.25 MG TAB PO SCH (17:00)
[2018-10-23] MEDS ORDERED: Carvedilol 3.125 MG TAB PO SCH (17:30)
[2018-10-23] MEDS: Atorvastatin Calcium 40 MG TAB PO SCH (21:05)
[2018-10-23] MEDS: Lisinopril 5 MG TAB PO SCH (21:05)
[2018-10-24] MEDS: HYDROcodone/Acetaminophen 5/325 mg Tablet PO PRN ×4 (03:37→19:48)
[2018-10-24 04:29] LABS: #Eosinphils 0.1 thou/uL (0.0-0.7); #Lymphocytes 1.5 thou/uL (1.20-3.40); #Monocytes 1.6 thou/uL (0.11-0.59); #Neutrophils 12.3 thou/uL (1.40-6.50); %Basophils 0.1 % (0.0-1.0); %Eosinophils 0.4 % (0.0-10.0); %Lymphocytes 9.7 % (21.0-51.0); %Monocytes 10.5 % (0.0-10.0); %Neutrophils 79.3 % (42.0-75.0); Hemoglobin 10.9 g/dL (14.0-18.0); Mean Corpuscular HGB CONC 33.4 g/dL (32.0-36.0); Mean Corpuscular Hemoglobin 33.5 pg (27.0-31.0); Mean Platelet Volume 6.9 fL (7.4-10.4); Platelet Count 224 thou/uL (130-400); RBC Distribution Width 10.5 % (11.5-14.5); Red Blood Cell (RBC) Count 3.26 mill/uL (4.70-6.10); White Blood Cell (WBC) Count 15.5 thou/uL (4.8-10.8)
[2018-10-24 04:49] LABS: Anion Gap 11 mmol/L (10-20); BUN (Urea Nitrogen) 9 mg/dL (8.4-25.7); Calc. Creatinine Clearance 146 mL/min (70-130); Calcium 8.6 mg/dL (7.8-10.44); Carbon Dioxide 26 mmol/L (22-29); Chloride 102 mmol/L (98-107); Estimated GFR-MDRD Greater than 90; Glucose 121 mg/dL (70-105); Potassium 3.7 mmol/L (3.5-5.1); Sodium 135 mmol/L (136-145)
[2018-10-24] MEDS: glipiZIDE 5 MG TAB PO SCH ×2 (08:51→17:15)
[2018-10-24] MEDS: Aspirin 325 mg Enteric Coated Tablet PO SCH (08:51)
[2018-10-24] MEDS: metFORMIN 500 MG TAB PO SCH ×2 (08:51→17:15)
[2018-10-24] MEDS: Carvedilol 6.25 MG TAB PO SCH ×2 (08:51→17:15)
[2018-10-24] MEDS: Gabapentin 300 MG CAP PO SCH ×2 (08:51→19:48)
[2018-10-24] MEDS: guaiFENesin ER 600 MG TAB PO SCH ×2 (08:52→19:49)
[2018-10-24] MEDS: Ascorbic Acid 500 mg Chewable Tablet PO SCH (08:52)
[2018-10-24] MEDS: Famotidine 20 MG TAB PO SCH ×2 (08:52→19:49)
[2018-10-24] MEDS: Potassium Chloride 10 MEQ TAB PO SCH (08:52)
[2018-10-24] MEDS: Furosemide 40 MG TAB PO SCH (08:52)
[2018-10-24] MEDS: Lisinopril 5 MG TAB PO SCH ×2 (08:52→19:49)
[2018-10-24] MEDS: Ipratropium Bromide 0.03% Nasal Inhaler 30 ml Bottle EA NARE SCH ×2 (08:53→20:02)
--- NOTE | 2018-10-24 09:36 | OP ---
DATE OF PROCEDURE: 10/20/2018 PREOPERATIVE DIAGNOSIS: Coronary artery disease. PROCEDURE PERFORMED: Coronary bypass graft x4, good quality COOK to the 2 mm LAD with plaque. It was at the site of the anastomosis as well as proximally and distally. Saphenous vein good quality to an OM2, 2 mm; OM1, 1.5 mm. PDA had poor saphenous vein to a 1.5 mm vessel with palpable plaque distal to the anastomosis. QUAHOGGER: Kevin. TRANSFUSION: None. DESCRIPTION OF PROCEDURE: After adequate anesthesia had been obtained, Dr. Brown began an endovascular vein harvest of the left greater saphenous vein. However, due to very poor quality of vein, he began an open harvest, however, this vein was of very poor quality. He then did an open vein harvest on the right thigh, where vein was obtained. I performed a simultaneous median sternotomy, harvesting the left internal mammary artery without entering the pleura. Heparin was given. Mammary divided distally and passed posterior to the thymus gland. Aorta and right atrium were cannulated and the patient was placed in cardiopulmonary bypass. The vessels were inspected for grafting, at which time, the aorta was cross clamped and a liter of cold blood cardioplegia given through the aortic root. Following this, the 4 distal anastomoses were all completed. Prior to removing the cross-clamp, the saphenous vein anastomosis from the OM2 graft was made to the OM1 graft behind the heart due to vein length issues. Following removal of the cross-clamp, the partial occluding clamp was placed in the right coronary and the OM2 vein grafts were anastomosed to the aortic root. Following this, the patient was weaned from cardiopulmonary bypass. Cannula was removed and protamine was given systemically. Aortic cannulation site was secured with a 4-0 Prolene suture. Mediastinal drains were placed, and the patient's sternum was then reapproximated with #7 interrupted wire using vancomycin paste on the sternal edges, platelet rich blood and platelet poor plasma. Subcutaneous tissue and skin were closed in layers and the patient is to be taken to the ICU in guarded condition. Job ID: [id number]
--- NOTE | 2018-10-24 13:56 | PDOC.PN ---
- Subjective Encounter Start Date: 10/24/18 Encounter Start Time: 13:54 Subjective: feels much better.chest tube removed today -: no CP/SOB - Objective MAR Reviewed: Yes Vital Signs & Weight: Vital Signs (12 hours) Temp Pulse Pulse Pulse Resp BP BP 10/24/18 13:40 78 20 10/24/18 12:00 98.1 F 73 17 10/24/18 09:13 92 96 152/70 H 124/60 10/24/18 08:52 83 10/24/18 08:00 98.2 F 83 17 10/24/18 06:55 82 20 10/24/18 03:03 98.3 F 79 18 BP Pulse Ox 10/24/18 13:40 91 L 10/24/18 12:00 120/63 94 L 10/24/18 09:13 10/24/18 08:52 10/24/18 08:00 175/81 H 92 L 10/24/18 06:55 90 L 10/24/18 03:03 144/70 H 92 L Weight Weight 199 lb Most Recent Monitor Data Heart Rate from ECG 78 NIBP 132/67 NIBP BP-Mean 88 Respiration from ECG 20 SpO2 96 I&O: 10/23/18 10/24/18 10/25/18 06:59 06:59 06:59 Intake Total 720 960 Output Total 1820 1260 Balance -1100 -300 Result Diagrams: 10/24/18 04:05 10/24/18 04:05 Additional Labs: Accuchecks 10/24/18 10/24/18 10/23/18 10:38 05:59 20:15 POC Glucose 222 H 149 H 243 H 10/23/18 10/23/18 10/21/18 16:52 10:59 11:56 POC Glucose 154 H 250 H 167 H Phys Exam - Physical Examination Constitutional: NAD HEENT: PERRLA, moist MMs, sclera anicteric, oral pharynx no lesions Neck: no nodes, no JVD, supple, full ROM Respiratory: no wheezing, no rales, no rhonchi, clear to auscultation bilateral Cardiovascular: RRR, no significant murmur Gastrointestinal: soft, non-tender, no distention, positive bowel sounds Musculoskeletal: no edema, pulses present Neurological: non-focal, normal sensation, moves all 4 limbs Psychiatric: normal affect, A&O x 3 Dx/Plan (1) CAD (coronary artery disease) Code(s): I25.10 - ATHSCL HEART DISEASE OF [place] CORONARY ARTERY W/O ANG PCTRS Status: Chronic Comment: s/p CABG 10/21/18. cont ASA,statin,BB and MARK- I..Per primary cardiology team.HD stable and extubated (2) Uncontrolled hypertension Code(s): I10 - ESSENTIAL (PRIMARY) HYPERTENSION Status: Acute Comment: add BB. ReStart home lisinopril at lower dose (3) DM2 (diabetes mellitus, type 2) Status: Chronic Comment: Uncontrolled. insulin drip stopped by primary team. will start ISS ,accucheck achs (4) HTN (hypertension) Code(s): I10 - ESSENTIAL (PRIMARY) HYPERTENSION Status: Chronic Comment: restart Lisinopril/HCTZ when OK w cardiology and BP better.monitor (5) PAD (peripheral artery disease) Code(s): I73.9 - PERIPHERAL VASCULAR DISEASE, UNSPECIFIED Status: Chronic Comment: cont ASA,statin.restart Pletal if Ok w Cardiology - Plan PT/OT, respiratory therapy, incentive spirometry, out of bed/ambulate, DVT proph w/SCDs Increase coreg as BP still high -: Increase lisinopril if still high tomorrow as Pt takes 40 mg/d at home -: HD stable -: blood sugar controlled -: IM team will follow * . Review of Systems - Review of Systems Constitutional: negative: fever, chills, sweats, weakness, malaise, other ENT: negative: Ear Pain, Ear Discharge, Nose Pain, Nose Discharge, Nose Congestion, Mouth Pain, Mouth Swelling, Throat Pain, Throat Swelling, Other Respiratory: negative: Cough, Dry, Shortness of Breath, Hemoptysis, SOB with Excertion, Pleuritic Pain, Sputum, Wheezing Cardiovascular: negative: chest pain, palpitations, orthopnea, paroxysmal nocturnal dyspnea, edema, light headedness, other Gastrointestinal: negative: Nausea, Vomiting, Abdominal Pain, Diarrhea, Constipation, Melena, Hematochezia, Other Genitourinary: negative: Dysuria, Frequency, Incontinence, Hematuria, Retention , Other Musculoskeletal: negative: Neck Pain, Shoulder Pain, Arm Pain, Back Pain, Hand Pain, Leg Pain, Foot Pain, Other Neurological: negative: Weakness, Numbness, Incoordination, Change in Speech, Confusion, Seizures, Other - Medications/Allergies Allergies/Adverse Reactions: Allergies Allergy/AdvReac Type Severity Reaction Status Date / Time No Known Allergies Allergy Verified 10/20/18 10:17 Medications: Current Medications Hydrocodone Bitart/Acetaminophen ([place] 5/325) 1 tab PO Q4H PRN PRN Reason: Mild-Moderate Pain (1-5) Hydrocodone Bitart/Acetaminophen ([place] 5/325) 2 tab PO Q4H PRN PRN Reason: Moderate to Severe Pain (6-10) Last Admin: 10/24/18 08:58 Dose: 2 tab Al Hydroxide/Mg Hydroxide (Maalox) 30 ml PO Q4H PRN PRN Reason: Indigestion Albuterol/Ipratropium (Duoneb) 3 ml NEB [id number] PRN PRN Reason: SHORTNESS OF BREATH Albuterol/Ipratropium (Duoneb) 3 ml IPPB TID-RT [facility] Last Admin: 10/24/18 13:40 Dose: 3 ml Ascorbic Acid (Vitamin C) 500 mg PO DAILY [facility] Last Admin: 10/24/18 08:52 Dose: 500 mg Aspirin (Ecotrin) 325 mg PO DAILY [facility] Last Admin: 10/24/18 08:51 Dose: 325 mg Atorvastatin Calcium (Lipitor) 40 mg PO [facility] Last Admin: 10/23/18 21:05 Dose: 40 mg Bisacodyl (Dulcolax) 10 mg PO Q12H PRN PRN Reason: Constipation Bisacodyl (Dulcolax) 10 mg [place] Q12H PRN PRN Reason: Constipation Carvedilol (Coreg) 6.25 mg PO BID-[facility] Last Admin: 10/24/18 08:51 Dose: 6.25 mg Dextrose/Water (Dextrose 50%) 25 gm SLOW IVP PRN PRN PRN Reason: Hypoglycemia Diphenhydramine HCl (Benadryl) 25 mg PO Q6H PRN PRN Reason: Itching & Insomnia or Ethan Shukri Famotidine (Pepcid) 20 mg PO BID [facility] Last Admin: 10/24/18 08:52 Dose: 20 mg Furosemide (Lasix) 40 mg PO DAILY-[facility] Last Admin: 10/24/18 08:52 Dose: 40 mg Gabapentin (Neurontin) 300 mg PO BID [facility] Last Admin: 10/24/18 08:51 Dose: 300 mg Glipizide (Glucotrol) 5 mg PO BID-[facility] Last Admin: 10/24/18 08:51 Dose: 5 mg Glucagon (Glucagon) 1 mg IM PRN PRN PRN Reason: Hypoglycemia Guaifenesin (Mucinex) 600 mg PO Q12HR [facility] Last Admin: 10/24/18 08:52 Dose: 600 mg Guaifenesin/Dextromethorphan (Robitussin Dm) 15 ml PO Q4H PRN PRN Reason: Cough Hydralazine HCl (Apresoline) 10 mg SLOW IVP Q4H PRN PRN Reason: sbp>170 Dextrose/Water (D5w) 1,000 mls @ 0 mls/hr IV .Q0M PRN PRN Reason: Hypoglycemia Insulin Human Lispro (Humalog) 0 units SC .MILD SLIDING SCALE PRN PRN Reason: Mild Correctional Scale Last Admin: 10/23/18 11:51 Dose: 3 units Insulin Human Lispro (Humalog) 0 units SC .BEDTIME SLIDING SC PRN PRN Reason: Bedtime Correctional Scale Last Admin: 10/23/18 21:07 Dose: 2 unit Ipratropium [place] (Atrovent 0.03%) 0 ml EA NARE BID [facility] Last Admin: 10/24/18 08:53 Dose: 1 puff Lisinopril (Zestril) 5 mg PO BID [facility] Last Admin: 10/24/18 08:52 Dose: 5 mg [facility] ([facility]) [facility] Last Admin: 10/24/18 08:51 Dose: 1,000 mg Mineral Oil (Fleet Mineral Oil) 133 ml [place] DAILYPRN PRN PRN Reason: Constipation Nitroglycerin (Nitrostat) 0.4 mg SL Q5MIN PRN PRN Reason: Chest Pain Ondansetron HCl (Zofran) 4 mg IVP Q6H PRN PRN Reason: Nausea/Vomiting Potassium Chloride (Klor-Con 10) 10 meq PO QAM-[facility] Last Admin: 10/24/18 08:52 Dose: 10 meq Sodium Chloride (Flush - Normal Saline) 10 ml IVF Q12HR [facility] Last Admin: 10/24/18 08:53 Dose: 10 ml Sodium Chloride (Flush - Normal Saline) 10 ml IVF PRN PRN PRN Reason: Saline Flush Zolpidem Tartrate (Ambien) 5 mg PO HSPRN PRN PRN Reason: Insomnia
[2018-10-24 14:03] LABS: Actual Bicarbonate (HCO3a) 26.8 mEq/L (22-28); Analyzer IN Cardio OR; Base Excess (BEa) 0.8 mEq/L (-2.0 to +3.0); CO2 Tension 47.7 mmHg (35.0-45.0); Calcium, Ionized 1.17 mmol/L (1.12-1.30); Carboxyhemoglobin (COHb) 1.4 gm% (0.0-3.0); Hemoglobin (Hb) 14.1 g/dL (14.0-18.0); O2 Tension (PaO2) 326.5 mmHg (80.0-100.0); Potassium - ABG Lab 4.62 mmol/L (3.70-5.30); pH, Arterial 7.37 (7.35-7.45)
[2018-10-24 14:04] LABS: Actual Bicarbonate (HCO3a) 22.5 mEq/L (22-28); Analyzer IN Cardio OR; CO2 Tension 46.3 mmHg (35.0-45.0); Calcium, Ionized 1.12 mmol/L (1.12-1.30); Hemoglobin (Hb) 13.3 g/dL (14.0-18.0); O2 Tension (PaO2) 440.8 mmHg (80.0-100.0); Potassium - ABG Lab 4.55 mmol/L (3.70-5.30)
[2018-10-24 14:05] LABS: Actual Bicarbonate (HCO3a) 24.3 mEq/L (22-28); Analyzer IN Cardio OR; CO2 Tension 37.9 mmHg (35.0-45.0); Calcium, Ionized 0.95 mmol/L (1.12-1.30); Carboxyhemoglobin (COHb) 0.5 gm% (0.0-3.0); Potassium - ABG Lab 5.09 mmol/L (3.70-5.30); pH, Arterial 7.42 (7.35-7.45)
[2018-10-24 14:05] LABS: Actual Bicarbonate (HCO3v) 24 mEq/L (22-28); Analyzer IN Cardio OR; Base Excess -1.1 mEq/L (-2.0 to +3.0); Calcium, Ionized 0.98 mmol/L (1.16-1.32); Chloride (ABG LAB) 102 mmol/L (98-106); Hemoglobin (Hb) 9.4 g/dL (13.1-17.2); Potassium - ABG Lab 4.68 mmol/L (3.70-5.30); Sodium 133.7 mmol/L (133-146); pH (venous) 7.37 (7.32-7.43)
[2018-10-24 14:06] LABS: Actual Bicarbonate (HCO3a) 24.6 mEq/L (22-28); Analyzer IN Cardio OR; Base Excess (BEa) -0.3 mEq/L (-2.0 to +3.0); CO2 Tension 41.3 mmHg (35.0-45.0); Calcium, Ionized 0.97 mmol/L (1.12-1.30); Carboxyhemoglobin (COHb) 0.8 gm% (0.0-3.0); O2 Tension (PaO2) 347.6 mmHg (80.0-100.0); Potassium - ABG Lab 5.05 mmol/L (3.70-5.30); pH, Arterial 7.39 (7.35-7.45)
[2018-10-24 14:07] LABS: Analyzer IN Cardio OR; Base Excess (BEa) -4.5 mEq/L (-2.0 to +3.0); CO2 Tension 46.3 mmHg (35.0-45.0); Calcium, Ionized 1.09 mmol/L (1.12-1.30); Carboxyhemoglobin (COHb) 0.6 gm% (0.0-3.0); Hemoglobin (Hb) 11.4 g/dL (14.0-18.0); O2 Tension (PaO2) 406.5 mmHg (80.0-100.0)
[2018-10-24 14:24] LABS: Puncture Site ALINE
[2018-10-24 14:26] LABS: Puncture Site ALINE
[2018-10-24 14:26] LABS: Puncture Site ALINE
[2018-10-24 14:27] LABS: O2 Tension (PaO2) 637.5 mmHg (80.0-100.0); Puncture Site ALINE
[2018-10-24 14:29] LABS: Puncture Site ALINE
[2018-10-24] MEDS: Atorvastatin Calcium 40 MG TAB PO SCH (19:48)
[2018-10-25] MEDS: HYDROcodone/Acetaminophen 5/325 mg Tablet PO PRN ×5 (01:22→23:37)
[2018-10-25] MEDS: Aspirin 325 mg Enteric Coated Tablet PO SCH (08:05)
[2018-10-25] MEDS: metFORMIN 500 MG TAB PO SCH ×2 (08:06→17:46)
[2018-10-25] MEDS: Potassium Chloride 10 MEQ TAB PO SCH (08:06)
[2018-10-25] MEDS: glipiZIDE 5 MG TAB PO SCH ×2 (08:06→17:46)
[2018-10-25] MEDS: Lisinopril 5 MG TAB PO SCH ×2 (08:07→19:38)
[2018-10-25] MEDS: Gabapentin 300 MG CAP PO SCH ×2 (08:07→19:38)
[2018-10-25] MEDS: Ascorbic Acid 500 mg Chewable Tablet PO SCH (08:08)
[2018-10-25] MEDS: guaiFENesin ER 600 MG TAB PO SCH ×2 (08:08→19:38)
[2018-10-25] MEDS: Furosemide 40 MG TAB PO SCH (08:08)
[2018-10-25] MEDS: Carvedilol 6.25 MG TAB PO SCH ×2 (08:08→17:46)
[2018-10-25] MEDS: Famotidine 20 MG TAB PO SCH ×2 (08:08→19:38)
[2018-10-25] MEDS: Ipratropium Bromide 0.03% Nasal Inhaler 30 ml Bottle EA NARE SCH ×2 (08:11→19:38)
[2018-10-25 11:13] LABS: Anion Gap 12 mmol/L (10-20); BUN (Urea Nitrogen) 13 mg/dL (8.4-25.7); Calc. Creatinine Clearance 132 mL/min (70-130); Carbon Dioxide 28 mmol/L (22-29); Chloride 101 mmol/L (98-107); Estimated GFR-MDRD Greater than 90; Glucose 126 mg/dL (70-105); Potassium 3.8 mmol/L (3.5-5.1); Sodium 137 mmol/L (136-145)
--- NOTE | 2018-10-25 16:12 | PDOC.PN ---
- Subjective Encounter Start Date: 10/25/18 Encounter Start Time: 16:10 Subjective: feels well. no CP/SOB -: ambulating .regular BMs. good appetite -: care discussed w in detail at bedside - Objective MAR Reviewed: Yes Vital Signs & Weight: Vital Signs (12 hours) Temp Pulse Resp BP BP BP Pulse Ox 10/25/18 15:27 98.4 F 74 16 132/66 92 L 10/25/18 12:44 73 16 91 L 10/25/18 11:57 99.4 F 73 16 109/56 L 92 L 10/25/18 08:08 138/74 92 L 10/25/18 08:07 76 10/25/18 07:24 98.4 F 76 16 141/74 H 92 L 10/25/18 06:41 77 16 90 L Weight Weight 199 lb 4.8 oz Most Recent Monitor Data Heart Rate from ECG 78 NIBP 132/67 NIBP BP-Mean 88 Respiration from ECG 20 SpO2 96 I&O: 10/24/18 10/25/18 10/26/18 06:59 06:59 06:59 Intake Total 960 1080 Output Total 1260 550 Balance -300 530 Result Diagrams: 10/24/18 04:05 10/25/18 10:29 Additional Labs: Accuchecks 10/25/18 10/25/18 10/24/18 11:18 05:50 20:28 POC Glucose 127 H 123 H 141 H 10/24/18 16:46 POC Glucose 101 Laboratory Tests 10/24/18 10/24/18 10/24/18 10:38 16:46 20:28 POC Glucose 222 H 101 141 H 10/25/18 05:50 POC Glucose 123 H Phys Exam - Physical Examination Constitutional: NAD HEENT: PERRLA, moist MMs, sclera anicteric, oral pharynx no lesions Neck: no nodes, no JVD, supple, full ROM Respiratory: no wheezing, no rales, no rhonchi, clear to auscultation bilateral Cardiovascular: RRR, no significant murmur Gastrointestinal: soft, non-tender, no distention, positive bowel sounds Musculoskeletal: no edema, pulses present Neurological: non-focal, normal sensation, moves all 4 limbs Psychiatric: normal affect, A&O x 3 Skin: no rash Dx/Plan (1) CAD (coronary artery disease) Code(s): I25.10 - ATHSCL HEART DISEASE OF [place] CORONARY ARTERY W/O ANG PCTRS Status: Chronic Comment: s/p CABG 10/21/18. cont ASA,statin,BB and MARK- I..Per primary cardiology team.HD stable and extubated (2) Uncontrolled hypertension Code(s): I10 - ESSENTIAL (PRIMARY) HYPERTENSION Status: Acute Comment: add BB. ReStart home lisinopril at lower dose (3) DM2 (diabetes mellitus, type 2) Status: Chronic Comment: Uncontrolled. insulin drip stopped by primary team. will start ISS ,accucheck achs (4) HTN (hypertension) Code(s): I10 - ESSENTIAL (PRIMARY) HYPERTENSION Status: Chronic Comment: restart Lisinopril/HCTZ when OK w cardiology and BP better.monitor (5) PAD (peripheral artery disease) Code(s): I73.9 - PERIPHERAL VASCULAR DISEASE, UNSPECIFIED Status: Chronic Comment: cont ASA,statin.restart Pletal if Ok w Cardiology - Plan PT/OT, respiratory therapy, incentive spirometry, out of bed/ambulate, DVT proph w/SCDs BP much better controlled. titrate meds as needed -: Blood sugar under control -: cont ISS and metformin. accuchecks achs -: IM team will follow -: OK to DC form IM stand point anytime.HD stable * . Review of Systems - Review of Systems Constitutional: negative: fever, chills, sweats, weakness, malaise, other ENT: negative: Ear Pain, Ear Discharge, Nose Pain, Nose Discharge, Nose Congestion, Mouth Pain, Mouth Swelling, Throat Pain, Throat Swelling, Other Respiratory: negative: Cough, Dry, Shortness of Breath, Hemoptysis, SOB with Excertion, Pleuritic Pain, Sputum, Wheezing Cardiovascular: negative: chest pain, palpitations, orthopnea, paroxysmal nocturnal dyspnea, edema, light headedness, other Gastrointestinal: negative: Nausea, Vomiting, Abdominal Pain, Diarrhea, Constipation, Melena, Hematochezia, Other Genitourinary: negative: Dysuria, Frequency, Incontinence, Hematuria, Retention , Other Musculoskeletal: negative: Neck Pain, Shoulder Pain, Arm Pain, Back Pain, Hand Pain, Leg Pain, Foot Pain, Other Neurological: negative: Weakness, Numbness, Incoordination, Change in Speech, Confusion, Seizures, Other - Medications/Allergies Allergies/Adverse Reactions: Allergies Allergy/AdvReac Type Severity Reaction Status Date / Time No Known Allergies Allergy Verified 10/20/18 10:17 Medications: Current Medications Hydrocodone Bitart/Acetaminophen ([place] 5/325) 1 tab PO Q4H PRN PRN Reason: Mild-Moderate Pain (1-5) Hydrocodone Bitart/Acetaminophen ([place] 5/325) 2 tab PO Q4H PRN PRN Reason: Moderate to Severe Pain (6-10) Last Admin: 10/25/18 11:20 Dose: 2 tab Al Hydroxide/Mg Hydroxide (Maalox) 30 ml PO Q4H PRN PRN Reason: Indigestion Albuterol/Ipratropium (Duoneb) 3 ml NEB [id number] PRN PRN Reason: SHORTNESS OF BREATH Albuterol/Ipratropium (Duoneb) 3 ml IPPB TID-RT [facility] Last Admin: 10/25/18 12:44 Dose: 3 ml Ascorbic Acid (Vitamin C) 500 mg PO DAILY [facility] Last Admin: 10/25/18 08:08 Dose: 500 mg Aspirin (Ecotrin) 325 mg PO DAILY [facility] Last Admin: 10/25/18 08:05 Dose: 325 mg Atorvastatin Calcium (Lipitor) 40 mg PO [facility] Last Admin: 10/24/18 19:48 Dose: 40 mg Bisacodyl (Dulcolax) 10 mg PO Q12H PRN PRN Reason: Constipation Bisacodyl (Dulcolax) 10 mg [place] Q12H PRN PRN Reason: Constipation Carvedilol (Coreg) 6.25 mg PO BID-[facility] Last Admin: 10/25/18 08:08 Dose: 6.25 mg Dextrose/Water (Dextrose 50%) 25 gm SLOW IVP PRN PRN PRN Reason: Hypoglycemia Diphenhydramine HCl (Benadryl) 25 mg PO Q6H PRN PRN Reason: Itching & Insomnia or Ethan Shukri Famotidine (Pepcid) 20 mg PO BID [facility] Last Admin: 10/25/18 08:08 Dose: 20 mg Furosemide (Lasix) 40 mg PO DAILY-[facility] Last Admin: 10/25/18 08:08 Dose: 40 mg Gabapentin (Neurontin) 300 mg PO BID [facility] Last Admin: 10/25/18 08:07 Dose: 300 mg [facility]) [facility] Last Admin: 10/25/18 08:06 Dose: 5 mg Glucagon (Glucagon) 1 mg IM PRN PRN PRN Reason: Hypoglycemia Guaifenesin (Mucinex) 600 mg PO Q12HR [facility] Last Admin: 10/25/18 08:08 Dose: 600 mg Guaifenesin/Dextromethorphan (Robitussin Dm) 15 ml PO Q4H PRN PRN Reason: Cough Hydralazine HCl (Apresoline) 10 mg SLOW IVP Q4H PRN PRN Reason: sbp>170 Dextrose/Water (D5w) 1,000 mls @ 0 mls/hr IV .Q0M PRN PRN Reason: Hypoglycemia Insulin Human Lispro (Humalog) 0 units SC .MILD SLIDING SCALE PRN PRN Reason: Mild Correctional Scale Last Admin: 10/23/18 11:51 Dose: 3 units Insulin Human Lispro (Humalog) 0 units SC .BEDTIME SLIDING SC PRN PRN Reason: Bedtime Correctional Scale Last Admin: 10/23/18 21:07 Dose: 2 unit Ipratropium [place] (Atrovent 0.03%) 0 ml EA NARE BID [facility] Last Admin: 10/25/18 08:11 Dose: 2 puff Lisinopril (Zestril) 5 mg PO BID [facility] Last Admin: 10/25/18 08:07 Dose: 5 mg Metformin [facility] ([facility]) [facility] Last Admin: 10/25/18 08:06 Dose: 1,000 mg Mineral Oil (Fleet Mineral Oil) 133 ml [place] DAILYPRN PRN PRN Reason: Constipation Nitroglycerin (Nitrostat) 0.4 mg SL Q5MIN PRN PRN Reason: Chest Pain Ondansetron HCl (Zofran) 4 mg IVP Q6H PRN PRN Reason: Nausea/Vomiting Potassium Chloride (Klor-Con 10) 10 meq PO QAM-[facility] Last Admin: 10/25/18 08:06 Dose: 10 meq Sodium Chloride (Flush - Normal Saline) 10 ml IVF Q12HR [facility] Last Admin: 10/25/18 08:09 Dose: 10 ml Sodium Chloride (Flush - Normal Saline) 10 ml IVF PRN PRN PRN Reason: Saline Flush Zolpidem Tartrate (Ambien) 5 mg PO HSPRN PRN PRN Reason: Insomnia
[2018-10-25] MEDS: Atorvastatin Calcium 40 MG TAB PO SCH (19:38)
[2018-10-26] MEDS: HYDROcodone/Acetaminophen 5/325 mg Tablet PO PRN ×3 (06:01→19:52)
[2018-10-26 06:51] LABS: Anion Gap 12 mmol/L (10-20); BUN (Urea Nitrogen) 14 mg/dL (8.4-25.7); Calc. Creatinine Clearance 147 mL/min (70-130); Calcium 8.9 mg/dL (7.8-10.44); Carbon Dioxide 27 mmol/L (22-29); Chloride 102 mmol/L (98-107); Estimated GFR-MDRD Greater than 90; Glucose 106 mg/dL (70-105); Potassium 3.7 mmol/L (3.5-5.1); Sodium 137 mmol/L (136-145)
[2018-10-26] MEDS: Ascorbic Acid 500 mg Chewable Tablet PO SCH (08:09)
[2018-10-26] MEDS: guaiFENesin ER 600 MG TAB PO SCH ×2 (08:09→19:50)
[2018-10-26] MEDS: metFORMIN 500 MG TAB PO SCH ×2 (08:09→16:47)
[2018-10-26] MEDS: Furosemide 40 MG TAB PO SCH (08:09)
[2018-10-26] MEDS: Gabapentin 300 MG CAP PO SCH ×2 (08:09→19:51)
[2018-10-26] MEDS: Lisinopril 5 MG TAB PO SCH (08:09)
[2018-10-26] MEDS: Aspirin 325 mg Enteric Coated Tablet PO SCH (08:09)
[2018-10-26] MEDS: Famotidine 20 MG TAB PO SCH ×2 (08:09→19:51)
[2018-10-26] MEDS: Ipratropium Bromide 0.03% Nasal Inhaler 30 ml Bottle EA NARE SCH ×2 (08:09→19:52)
[2018-10-26] MEDS: Carvedilol 6.25 MG TAB PO SCH ×2 (08:09→16:47)
[2018-10-26] MEDS: glipiZIDE 5 MG TAB PO SCH ×2 (08:09→16:47)
[2018-10-26] MEDS: Potassium Chloride 10 MEQ TAB PO SCH (08:09)
[2018-10-26] MEDS: Benzonatate 100 MG CAP PO SCH ×3 (08:09→19:52)
--- NOTE | 2018-10-26 13:30 | PDOC.PN ---
- Subjective Encounter Start Date: 10/26/18 Encounter Start Time: 13:23 Subjective: feels ok but upset that he won't be able to go home today -: increased discharge noted from incision which is now dressed - Objective MAR Reviewed: Yes Vital Signs & Weight: Vital Signs (12 hours) Temp Pulse Resp BP BP Pulse Ox 10/26/18 11:22 69 18 138/72 92 L 10/26/18 08:09 92 L 10/26/18 07:33 72 16 10/26/18 07:23 98.8 F 74 20 139/71 92 L 10/26/18 03:55 98.5 F 70 16 157/73 H 97 10/26/18 02:39 90 L Weight Weight 199 lb 9.6 oz Most Recent Monitor Data Heart Rate from ECG 78 NIBP 132/67 NIBP BP-Mean 88 Respiration from ECG 20 SpO2 96 I&O: 10/25/18 10/26/18 10/27/18 06:59 06:59 06:59 Intake Total 1080 1680 Output Total 550 Balance 530 1680 Result Diagrams: 10/24/18 04:05 10/26/18 04:47 Additional Labs: Accuchecks 10/26/18 10/26/18 10/25/18 10:59 06:17 20:37 POC Glucose 109 115 H 135 H 10/25/18 10/22/18 10/21/18 16:51 04:00 18:59 POC Glucose 153 H 98 101 10/21/18 10/21/18 10/21/18 17:53 16:56 16:02 POC Glucose 115 H 119 H 126 H 10/21/18 10/21/18 15:00 14:01 POC Glucose 131 H 126 H Phys Exam - Physical Examination Constitutional: NAD HEENT: PERRLA, moist MMs, sclera anicteric, oral pharynx no lesions Neck: no nodes, no JVD, supple, full ROM Respiratory: no wheezing, no rales, no rhonchi, clear to auscultation bilateral Cardiovascular: RRR, no significant murmur, no rub Gastrointestinal: soft, non-tender, no distention, positive bowel sounds Musculoskeletal: no edema, pulses present Neurological: non-focal, normal sensation, moves all 4 limbs Psychiatric: normal affect, A&O x 3 Skin: no rash Dx/Plan (1) CAD (coronary artery disease) Code(s): I25.10 - ATHSCL HEART DISEASE OF [place] CORONARY ARTERY W/O ANG PCTRS Status: Chronic Comment: s/p CABG 10/21/18. cont ASA,statin,BB and MARK- I..Per primary cardiology team.HD stable and extubated (2) Uncontrolled hypertension Code(s): I10 - ESSENTIAL (PRIMARY) HYPERTENSION Status: Acute Comment: add BB. ReStart home lisinopril at lower dose (3) DM2 (diabetes mellitus, type 2) Status: Chronic Comment: Uncontrolled. insulin drip stopped by primary team. will start ISS ,accucheck achs (4) HTN (hypertension) Code(s): I10 - ESSENTIAL (PRIMARY) HYPERTENSION Status: Chronic Comment: On Lisinopril and Coreg. BP better.monitor (5) PAD (peripheral artery disease) Code(s): I73.9 - PERIPHERAL VASCULAR DISEASE, UNSPECIFIED Status: Chronic Comment: cont ASA,statin.restart Pletal if Ok w Cardiology - Plan PT/OT, incentive spirometry, out of bed/ambulate, DVT proph w/SCDs BP and Blood sugar controlled -: continue meds as outlined above -: CBC in am.clinically does not look like he has incisional infection -: Rest per primary team * . Review of Systems - Review of Systems Constitutional: negative: fever, chills, sweats, weakness, malaise, other ENT: negative: Ear Pain, Ear Discharge, Nose Pain, Nose Discharge, Nose Congestion, Mouth Pain, Mouth Swelling, Throat Pain, Throat Swelling, Other Respiratory: negative: Cough, Dry, Shortness of Breath, Hemoptysis, SOB with Excertion, Pleuritic Pain, Sputum, Wheezing Cardiovascular: negative: chest pain, palpitations, orthopnea, paroxysmal nocturnal dyspnea, edema, light headedness, other Gastrointestinal: negative: Nausea, Vomiting, Abdominal Pain, Diarrhea, Constipation, Melena, Hematochezia, Other Genitourinary: negative: Dysuria, Frequency, Incontinence, Hematuria, Retention , Other Musculoskeletal: negative: Neck Pain, Shoulder Pain, Arm Pain, Back Pain, Hand Pain, Leg Pain, Foot Pain, Other Neurological: negative: Weakness, Numbness, Incoordination, Change in Speech, Confusion, Seizures, Other - Medications/Allergies Allergies/Adverse Reactions: Allergies Allergy/AdvReac Type Severity Reaction Status Date / Time No Known Allergies Allergy Verified 10/20/18 10:17 Medications: Current Medications Hydrocodone Bitart/Acetaminophen ([place] 5/325) 1 tab PO Q4H PRN PRN Reason: Mild-Moderate Pain (1-5) Hydrocodone Bitart/Acetaminophen ([place] 5/325) 2 tab PO Q4H PRN PRN Reason: Moderate to Severe Pain (6-10) Last Admin: 10/26/18 06:01 Dose: 2 tab Al Hydroxide/Mg Hydroxide (Maalox) 30 ml PO Q4H PRN PRN Reason: Indigestion Albuterol/Ipratropium (Duoneb) 3 ml NEB [id number] PRN PRN Reason: SHORTNESS OF BREATH Albuterol/Ipratropium (Duoneb) 3 ml IPPB TID-RT [facility] Last Admin: 10/26/18 07:33 Dose: 3 ml Ascorbic Acid (Vitamin C) 500 mg PO DAILY [facility] Last Admin: 10/26/18 08:09 Dose: 500 mg Aspirin (Ecotrin) 325 mg PO DAILY [facility] Last Admin: 10/26/18 08:09 Dose: 325 mg Atorvastatin Calcium (Lipitor) 40 mg PO HS [facility] Last Admin: 10/25/18 19:38 Dose: 40 mg Benzonatate (Tessalon) 200 mg PO TID [facility] Last Admin: 10/26/18 08:09 Dose: 200 mg Bisacodyl (Dulcolax) 10 mg PO Q12H PRN PRN Reason: Constipation Bisacodyl (Dulcolax) 10 mg [place] Q12H PRN PRN Reason: Constipation Carvedilol (Coreg) 6.25 mg PO BID-[facility] Last Admin: 10/26/18 08:09 Dose: 6.25 mg Ciprofloxacin (Cipro) 500 mg PO 0600,1999 [facility] Dextrose/Water (Dextrose 50%) 25 gm SLOW IVP PRN PRN PRN Reason: Hypoglycemia Diphenhydramine HCl (Benadryl) 25 mg PO Q6H PRN PRN Reason: Itching & Insomnia or Ethan Shukri Famotidine (Pepcid) 20 mg PO BID [facility] Last Admin: 10/26/18 08:09 Dose: 20 mg Furosemide (Lasix) 40 mg PO DAILY-[facility] Last Admin: 10/26/18 08:09 Dose: 40 mg Gabapentin (Neurontin) 300 mg PO BID [facility] Last Admin: 10/26/18 08:09 Dose: 300 mg Glipizide (Glucotrol) 5 mg PO BID-[facility] Last Admin: 10/26/18 08:09 Dose: 5 mg Glucagon (Glucagon) 1 mg IM PRN PRN PRN Reason: Hypoglycemia Guaifenesin (Mucinex) 600 mg PO Q12HR [facility] Last Admin: 10/26/18 08:09 Dose: 600 mg Guaifenesin/Dextromethorphan (Robitussin Dm) 15 ml PO Q4H PRN PRN Reason: Cough Hydralazine HCl (Apresoline) 10 mg SLOW IVP Q4H PRN PRN Reason: sbp>170 Dextrose/Water (D5w) 1,000 mls @ 0 mls/hr IV .Q0M PRN PRN Reason: Hypoglycemia Insulin Human Lispro (Humalog) 0 units SC .MILD SLIDING SCALE PRN PRN Reason: Mild Correctional Scale Last Admin: 10/23/18 11:51 Dose: 3 units Insulin Human Lispro (Humalog) 0 units SC .BEDTIME SLIDING SC PRN PRN Reason: Bedtime Correctional Scale Last Admin: 10/23/18 21:07 Dose: 2 unit Ipratropium [place] (Atrovent 0.03%) 0 ml EA NARE BID [facility] Last Admin: 10/26/18 08:09 Dose: 2 puff Lisinopril (Zestril) 5 mg PO BID [facility] Last Admin: 10/26/18 08:09 Dose: 5 mg Metformin HCl (Glucophage) 1,000 mg PO BID-[facility] Last Admin: 10/26/18 08:09 Dose: 1,000 mg Mineral Oil (Fleet Mineral Oil) 133 ml [place] DAILYPRN PRN PRN Reason: Constipation Nitroglycerin (Nitrostat) 0.4 mg SL Q5MIN PRN PRN Reason: Chest Pain Ondansetron HCl (Zofran) 4 mg IVP Q6H PRN PRN Reason: Nausea/Vomiting Potassium Chloride (Klor-Con 10) 10 meq PO QAM-[facility] Last Admin: 10/26/18 08:09 Dose: 10 meq Sodium Chloride (Flush - Normal Saline) 10 ml IVF Q12HR [facility] Last Admin: 10/26/18 08:10 Dose: 10 ml Sodium Chloride (Flush - Normal Saline) 10 ml IVF PRN PRN PRN Reason: Saline Flush Zolpidem Tartrate (Ambien) 5 mg PO HSPRN PRN PRN Reason: Insomnia
--- NOTE | 2018-10-26 14:50 | EKG ---
Test Reason : POST CABG Blood Pressure : / mmHG Vent. Rate : 072 BPM Atrial Rate : 072 BPM P-R Int : 164 ms QRS Dur : 100 ms QT Int : 442 ms P-R-T Axes : 060 061 048 degrees QTc Int : 483 ms Normal sinus rhythm Cannot rule out Anterior infarct (cited on or before 17-OCT-2018) Abnormal ECG Confirmed by JOSE DAVID CASTILLO ([id number]) on 10/26/2018 2:50:03 PM Referred By: SURESH Confirmed By:JOSE DAVID CASTILLO
[2018-10-26] MEDS: Ciprofloxacin 500 MG TAB PO SCH (19:50)
[2018-10-26] MEDS: Atorvastatin Calcium 40 MG TAB PO SCH (19:51)
[2018-10-26] MEDS: Lisinopril 10 MG TAB PO SCH (19:51)
[2018-10-26] MEDS ORDERED: Cipro 250 MG TAB PO SCH (20:00)
[2018-10-27] MEDS: HYDROcodone/Acetaminophen 5/325 mg Tablet PO PRN ×3 (01:25→20:32)
[2018-10-27] MEDS: Ciprofloxacin 500 MG TAB PO SCH ×2 (05:24→20:31)
[2018-10-27] MEDS: Benzonatate 100 MG CAP PO SCH ×3 (09:09→20:30)
[2018-10-27] MEDS: guaiFENesin ER 600 MG TAB PO SCH ×2 (09:09→20:31)
[2018-10-27] MEDS: Potassium Chloride 10 MEQ TAB PO SCH (09:09)
[2018-10-27] MEDS: Furosemide 40 MG TAB PO SCH (09:09)
[2018-10-27] MEDS: Gabapentin 300 MG CAP PO SCH ×2 (09:09→20:31)
[2018-10-27] MEDS: metFORMIN 500 MG TAB PO SCH ×2 (09:10→17:43)
[2018-10-27] MEDS: Carvedilol 6.25 MG TAB PO SCH ×2 (09:10→17:43)
[2018-10-27] MEDS: Lisinopril 10 MG TAB PO SCH ×2 (09:10→20:31)
[2018-10-27] MEDS: Famotidine 20 MG TAB PO SCH ×2 (09:10→20:31)
[2018-10-27] MEDS: Aspirin 325 mg Enteric Coated Tablet PO SCH (09:11)
[2018-10-27] MEDS: Ascorbic Acid 500 mg Chewable Tablet PO SCH (09:11)
[2018-10-27] MEDS: glipiZIDE 5 MG TAB PO SCH ×2 (09:24→17:42)
[2018-10-27] MEDS: Ipratropium Bromide 0.03% Nasal Inhaler 30 ml Bottle EA NARE SCH ×2 (13:37→21:11)
--- NOTE | 2018-10-27 16:14 | PDOC.PN ---
- Subjective Encounter Start Date: 10/27/18 Encounter Start Time: 14:15 Patient seen and examined for med mngt. No CP. Mild discomfort over the incision. No new complaints. No overnight events - Objective MAR Reviewed: Yes Vital Signs & Weight: Vital Signs (12 hours) Temp Pulse Pulse Pulse Resp BP BP 10/27/18 14:18 69 16 10/27/18 13:39 73 69 174/77 H 10/27/18 12:25 98.5 F 67 18 10/27/18 09:10 138/75 10/27/18 09:04 76 70 180/81 H 10/27/18 08:00 10/27/18 07:50 98.4 F 70 18 10/27/18 07:27 70 16 BP BP Pulse Ox Pulse Ox Pulse Ox 10/27/18 14:18 10/27/18 13:39 131/66 10/27/18 12:25 138/69 92 L 10/27/18 09:10 10/27/18 09:04 144/71 H 93 L 91 L 10/27/18 08:00 95 10/27/18 07:50 138/75 10/27/18 07:27 Weight Weight 199 lb 9.6 oz Most Recent Monitor Data Heart Rate from ECG 78 NIBP 132/67 NIBP BP-Mean 88 Respiration from ECG 20 SpO2 96 I&O: 10/26/18 10/27/18 10/28/18 06:59 06:59 06:59 Intake Total 1680 1440 Balance 1680 1440 Result Diagrams: 10/24/18 04:05 10/26/18 04:47 Additional Labs: Accuchecks 10/27/18 10/27/18 10/26/18 11:41 05:20 16:29 POC Glucose 98 108 104 EKG Reviewed by me: Yes (Tele SR) Phys Exam - Physical Examination Constitutional: NAD Respiratory: no wheezing, no rhonchi Cardiovascular: RRR, no rub dressing over the sternal incision Gastrointestinal: soft, non-tender, positive bowel sounds Musculoskeletal: no edema Neurological: moves all 4 limbs Dx/Plan - Plan DVT proph w/SCDs IMPRESSION: CAD s/p CABG Post CABG Afib - in SR HTN DM2 HLD Former smoker PLAN: Cont ASA/Coreg/ACEI Cont Lasix Cont other meds as below Cont Cardiac Rehab Review of Systems - Review of Systems Respiratory: negative: Cough, Dry, Shortness of Breath, Hemoptysis, SOB with Excertion, Pleuritic Pain, Sputum, Wheezing Cardiovascular: negative: chest pain, palpitations, orthopnea, paroxysmal nocturnal dyspnea, edema, light headedness, other Gastrointestinal: negative: Nausea, Vomiting, Abdominal Pain, Diarrhea, Constipation, Melena, Hematochezia, Other - Medications/Allergies Allergies/Adverse Reactions: Allergies Allergy/AdvReac Type Severity Reaction Status Date / Time No Known Allergies Allergy Verified 10/20/18 10:17 Medications: Current Medications Hydrocodone Bitart/Acetaminophen ([place] 5/325) 1 tab PO Q4H PRN PRN Reason: Mild-Moderate Pain (1-5) Last Admin: 10/27/18 09:06 Dose: 1 tab Hydrocodone Bitart/Acetaminophen ([place] 5/325) 2 tab PO Q4H PRN PRN Reason: Moderate to Severe Pain (6-10) Last Admin: 10/27/18 05:22 Dose: 2 tab Al Hydroxide/Mg Hydroxide (Maalox) 30 ml PO Q4H PRN PRN Reason: Indigestion Albuterol/Ipratropium (Duoneb) 3 ml NEB [id number] PRN PRN Reason: SHORTNESS OF BREATH Albuterol/Ipratropium (Duoneb) 3 ml IPPB TID-RT [facility] Last Admin: 10/27/18 14:18 Dose: 3 ml Ascorbic Acid (Vitamin C) 500 mg PO DAILY [facility] Last Admin: 10/27/18 09:11 Dose: 500 mg Aspirin (Ecotrin) 325 mg PO DAILY [facility] Last Admin: 10/27/18 09:11 Dose: 325 mg Atorvastatin Calcium (Lipitor) 40 mg PO HS [facility] Last Admin: 10/26/18 19:51 Dose: 40 mg Benzonatate (Tessalon) 200 mg PO TID [facility] Last Admin: 10/27/18 09:09 Dose: 200 mg Bisacodyl (Dulcolax) 10 mg PO Q12H PRN PRN Reason: Constipation Last Admin: 10/27/18 09:10 Dose: 10 mg Bisacodyl (Dulcolax) 10 mg [place] Q12H PRN PRN Reason: Constipation Carvedilol (Coreg) 6.25 mg PO BID-[facility] Last Admin: 10/27/18 09:10 Dose: 6.25 mg Ciprofloxacin (Cipro) 500 mg PO 599,1999 [facility] Last Admin: 10/27/18 05:24 Dose: 500 mg Dextrose/Water (Dextrose 50%) 25 gm SLOW IVP PRN PRN PRN Reason: Hypoglycemia Diphenhydramine HCl (Benadryl) 25 mg PO Q6H PRN PRN Reason: Itching & Insomnia or Ethan Shukri Famotidine (Pepcid) 20 mg PO BID [facility] Last Admin: 10/27/18 09:10 Dose: 20 mg Furosemide (Lasix) 40 mg PO DAILY-[facility] Last Admin: 10/27/18 09:09 Dose: 40 mg Gabapentin (Neurontin) 300 mg PO BID [facility] Last Admin: 10/27/18 09:09 Dose: 300 mg Glipizide (Glucotrol) 5 mg PO BID-[facility] Last Admin: 10/27/18 09:24 Dose: Not Given Glucagon (Glucagon) 1 mg IM PRN PRN PRN Reason: Hypoglycemia Guaifenesin (Mucinex) 600 mg PO Q12HR [facility] Last Admin: 10/27/18 09:09 Dose: 600 mg Guaifenesin/Dextromethorphan (Robitussin Dm) 15 ml PO Q4H PRN PRN Reason: Cough Hydralazine HCl (Apresoline) 10 mg SLOW IVP Q4H PRN PRN Reason: sbp>170 Dextrose/Water (D5w) 1,000 mls @ 0 mls/hr IV .Q0M PRN PRN Reason: Hypoglycemia Insulin Human Lispro (Humalog) 0 units SC .MILD SLIDING SCALE PRN PRN Reason: Mild Correctional Scale Last Admin: 10/23/18 11:51 Dose: 3 units Insulin Human Lispro (Humalog) 0 units SC .BEDTIME SLIDING SC PRN PRN Reason: Bedtime Correctional Scale Last Admin: 10/23/18 21:07 Dose: 2 unit Ipratropium [place] (Atrovent 0.03%) 0 ml EA NARE BID [facility] Last Admin: 10/27/18 13:37 Dose: 1 puff Lisinopril (Zestril) 10 mg PO BID [facility] Last Admin: 10/27/18 09:10 Dose: 10 mg [facility] Last Admin: 10/27/18 09:10 Dose: 1,000 mg Mineral Oil (Fleet Mineral Oil) 133 ml [place] DAILYPRN PRN PRN Reason: Constipation Nitroglycerin (Nitrostat) 0.4 mg SL Q5MIN PRN PRN Reason: Chest Pain Ondansetron HCl (Zofran) 4 mg IVP Q6H PRN PRN Reason: Nausea/Vomiting Polyethylene Glycol (Miralax) 17 gm PO DAILY [facility] Potassium Chloride (Klor-Con 10) 10 meq PO QAM-[facility] Last Admin: 10/27/18 09:09 Dose: 10 meq Senna/Docusate Sodium (Senokot S) 1 tab PO BID [facility] Sodium Chloride (Flush - Normal Saline) 10 ml IVF Q12HR [facility] Last Admin: 10/27/18 09:12 Dose: 10 ml Sodium Chloride (Flush - Normal Saline) 10 ml IVF PRN PRN PRN Reason: Saline Flush Zolpidem Tartrate (Ambien) 5 mg PO HSPRN PRN PRN Reason: Insomnia
[2018-10-27] MEDS: Atorvastatin Calcium 40 MG TAB PO SCH (20:30)
[2018-10-27] MEDS: Senokot S 8.6-50 MG TAB PO SCH (20:31)
[2018-10-28] MEDS: HYDROcodone/Acetaminophen 5/325 mg Tablet PO PRN (01:48)
[2018-10-28] MEDS: Ciprofloxacin 500 MG TAB PO SCH (05:36)
[2018-10-28 08:08] VITALS: TEMP 97.9
[2018-10-28] MEDS: Carvedilol 6.25 MG TAB PO SCH (08:54)
[2018-10-28] MEDS: Famotidine 20 MG TAB PO SCH (08:55)
[2018-10-28] MEDS: Benzonatate 100 MG CAP PO SCH (08:55)
[2018-10-28] MEDS: Ascorbic Acid 500 mg Chewable Tablet PO SCH (08:55)
[2018-10-28] MEDS: Potassium Chloride 10 MEQ TAB PO SCH (08:55)
[2018-10-28] MEDS: metFORMIN 500 MG TAB PO SCH (08:55)
[2018-10-28] MEDS: Aspirin 325 mg Enteric Coated Tablet PO SCH (08:55)
[2018-10-28] MEDS: Gabapentin 300 MG CAP PO SCH (08:55)
[2018-10-28] MEDS: Furosemide 40 MG TAB PO SCH (08:56)
[2018-10-28] MEDS: guaiFENesin ER 600 MG TAB PO SCH (08:56)
[2018-10-28] MEDS: Lisinopril 10 MG TAB PO SCH (08:56)
[2018-10-28] MEDS: glipiZIDE 5 MG TAB PO SCH (08:56)
[2018-10-28] MEDS: Senokot S 8.6-50 MG TAB PO SCH (08:56)
[2018-10-28] MEDS ORDERED: Polyethylene Glycol 3350 17 GM Packet PO SCH (09:00)
[2018-10-28] MEDS: Ipratropium Bromide 0.03% Nasal Inhaler 30 ml Bottle EA NARE SCH (09:03)
[2018-10-28 13:17] VITALS: BP 131/69
--- NOTE | 2018-10-31 10:13 | DIS ---
DATE OF ADMISSION: 10/20/2018 DATE OF DISCHARGE: 10/28/2018 HOSPITAL COURSE: The patient was admitted on 10/20 for elective cardiac catheterization showing severe three-vessel coronary artery disease. His preoperative course began with an evaluation for peripheral vascular disease. He had multiple risk factors including diabetes mellitus, hypertension, dyslipidemia, and a longstanding smoking history of up to 2 packs of cigarettes a day that he significantly decreased in July of this year. He was taken to the operating room on 10/21 where he underwent coronary artery bypass grafting x4 with COOK to the LAD, saphenous vein graft to OM1, OM2 and saphenous vein graft to a PDA. Postoperative course, he had a very brief episode of atrial fibrillation which resolved spontaneously. He then had significant coughing spells related to his lung disease resulting in some sternal drainage which delayed his discharge for about 3 days. This drainage had all but ceased with about a dime-sized spot of drainage over 12 hours prior to discharge. DISCHARGE MEDICATIONS: He will be discharged home on new prescriptions of 1. Tessalon 200 t.i.d. 2. Coreg 6.25 b.i.d. 3. Cipro 500 b.i.d. for three days. 4. Orange for pain. 5. He will resume his baby aspirin 81 mg a day as well as his diabetic medicines. 6. Pletal 50 b.i.d. 7. Glipizide 5 b.i.d. 8. Lisinopril/hydrochlorothiazide 20/25 daily. 9. Metformin 1000 b.i.d. Discharge and followup instructions have been given. Job ID: [id number]
== END 2018-10-28 14:20 | disposition home or self-care (01) | DRG 234 ==
LOC: CCL 05:42 → 2NO 08:32 → CCU 10-21 07:08 → 2NO 10-22 17:56
PROVIDERS: ADMIT Internal Medicine Cardiovascular Disease; ATTEND Internal Medicine Cardiovascular Disease
PROC: B215YZZ Fluoroscopy of Left Heart using Other Contrast (ICD-10-PCS; 2018-10-20)
PROC: 02100Z9 Bypass Coronary Artery, One Artery from Left Internal Mammary, Open Approach (ICD-10-PCS; principal; 2018-10-21)
PROC: 4A023N7 Measurement of Cardiac Sampling and Pressure, Left Heart, Percutaneous Approach (ICD-10-PCS; 2018-10-21)
PROC: 021209W Bypass Coronary Artery, Three Arteries from Aorta with Autologous Venous Tissue, Open Approach (ICD-10-PCS; 2018-10-21)
PROC: 06BP4ZZ Excision of Right Saphenous Vein, Percutaneous Endoscopic Approach (ICD-10-PCS; 2018-10-21)
PROC: 5A1221Z Performance of Cardiac Output, Continuous (ICD-10-PCS; 2018-10-21)
DX: I25.10 Atherosclerotic heart disease of native coronary artery without angina pectoris (principal); E11.9 Type 2 diabetes mellitus without complications; I10 Essential (primary) hypertension; I48.91 Unspecified atrial fibrillation; I73.9 Peripheral vascular disease, unspecified; E78.5 Hyperlipidemia, unspecified; Z79.82 Long term (current) use of aspirin; Z79.4 Long term (current) use of insulin; Z87.891 Personal history of nicotine dependence
CPT/HCPCS: 36415; 36416; 36430; 71045; 80048; 80061; 82805; 82947; 83036; 85025; 85610; 85730; 86850; 86900; 86901; 93005; 93010; 93458; 93798; 94002; 94150; 94640; 94760; 99152; 99153; C1769; J0690; J1265; J1642; J1644; J1815; J1885; J2150; J2250; J2370; J2440; J2704; J2720; J3010; J3370; J3475; J3480; J3490; J7050; J7620; P9045; Q9967; S0017; S0028

== ENCOUNTER 2019-01-23 13:55 | Outpatient (CLI) | payer OTHER ==
--- NOTE | 2019-01-23 15:16 | CT ---
EXAM: CT angiogram abdomen and pelvis and bilateral lower extremities with IV contrast and three-dimensiona l reconstructions PROVIDED CLINICAL HISTORY: Lower extremity pain COMPARISON: None FINDINGS: The visualized lung bases are free of significant opacity. The solid abdominal organs are suboptimally evaluated in the arterial phase of contrast but demonstra te an unremarkable CT appearance for the phase of contrast in which the study was acquired. No bowel dilatation, inflammatory fat stranding, free fluid or enlargement apparent. The osseous structu res demonstrate no concerning lytic or blastic lesions. Changes of bilateral femoral head osteonecrosis without subchondral collapse demonstrated. The abdominal aorta is nonaneurysmal. There is extensive calcified and noncalcified plaque involving the abdominal aorta and its branches. There is moderate proximal stenosis involving the superior mesenteric artery. The celiac, renal and inferior mesenteric arteries. No significant stenosis. There is extensive multifocal calcified and noncalcified atherosclerotic plaque involving both common iliac arteries. There is moderate-severe long segment narrowing of both external iliac arteries on the basis of calcified and noncalcified atherosclerotic plaque. Multifocal moderate-severe stenoses i nvolve both internal iliac arteries. On the right, there is extensive calcified and noncalcified atherosclerotic plaque involving the comm on femoral artery with multifocal high-grade stenosis involving the mid to distal common femoral artery and short segment occlusion distally. There is multifocal atherosclerotic calcified and noncal cified stenosis involving the superficial femoral artery with multiple areas of moderate to severe stenosis. There is severe origin stenosis involving the profunda femoral artery and multifocal modera te severe calcified stenoses in its mid to distal portions. The popliteal artery demonstrates severe long segment calcified stenosis distally. Prominent atherosclerotic vascular calcification inv olves the runoff vessels proximally, limiting assessment for opacification. The distal runoff vessels not obscured by calcium appear patent to the level of the distal foreleg, subsequent to which the peroneal and anterior tibial arteries appear opacified with nonopacification of the peroneal. On the left, there is extensive multifocal atherosclerotic noncalcified and calcified plaque involvin g the left common femoral artery with moderate stenosis distally. There is occlusion of the left proximal superficial femoral artery from its origin to about 14 cm distal to its origin. From this po int distally there is moderate-severe multifocal stenoses. Profunda femoral artery demonstrates multifocal short segment high-grade stenosis proximally. The popliteal artery demonstrates moderate-s evere multifocal stenosis distally. The anterior tibial artery does not appear opacified. The posterior tibial and peroneal arteries appear opacified to the level of the ankle and demonstrate mul tifocal atherosclerotic calcium proximally. IMPRESSION: 1. Extensive iliac, femoral and popliteal stenoses. 2. Moderate proximal superior mesenteric artery stenosis.
[2019-01-23] MEDS ORDERED: Iopamidol 370 76% 100 ML VIAL ONE (16:29)
== END 2019-01-23 13:56 | disposition home or self-care (01) ==
LOC: BICCT 13:55
PROVIDERS: ATTEND Thoracic Surgery (Cardiothoracic Vascular Surgery)
DX: I25.110 Atherosclerotic heart disease of native coronary artery with unstable angina pectoris (principal); K55.1 Chronic vascular disorders of intestine; I70.203 Unspecified atherosclerosis of native arteries of extremities, bilateral legs; I70.8 Atherosclerosis of other arteries
CPT/HCPCS: 75635; Q9967

== ENCOUNTER 2019-01-30 06:57 | Day surgery (SDC) | payer SELFPAY ==
[2019-01-27 10:49] VITALS: BMI 29.8
[2019-01-30 07:46] LABS: #Eosinphils 0.2 thou/uL (0.0-0.7); #Lymphocytes 2.6 thou/uL (1.20-3.40); #Monocytes 0.7 thou/uL (0.11-0.59); #Neutrophils 5.4 thou/uL (1.40-6.50); %Basophils 0.5 % (0.0-1.0); %Eosinophils 2.3 % (0.0-10.0); %Lymphocytes 28.9 % (21.0-51.0); %Monocytes 7.8 % (0.0-10.0); %Neutrophils 60.5 % (42.0-75.0); Mean Corpuscular HGB CONC 34.2 g/dL (32.0-36.0); Mean Corpuscular Volume 93.6 fL (78.0-98.0); Mean Platelet Volume 7.2 fL (7.4-10.4); Platelet Count 224 thou/uL (130-400); RBC Distribution Width 12.1 % (11.5-14.5); Red Blood Cell (RBC) Count 4.38 mill/uL (4.70-6.10); White Blood Cell (WBC) Count 8.9 thou/uL (4.8-10.8)
[2019-01-30 08:02] LABS: Anion Gap 14 mmol/L (10-20); BUN (Urea Nitrogen) 8 mg/dL (8.4-25.7); Calc. Creatinine Clearance 138 mL/min (70-130); Calcium 9.5 mg/dL (7.8-10.44); Carbon Dioxide 28 mmol/L (22-29); Chloride 97 mmol/L (98-107); Estimated GFR-MDRD Greater than 90; Glucose 174 mg/dL (70-105); Potassium 4.5 mmol/L (3.5-5.1); Sodium 134 mmol/L (136-145)
[2019-01-30 08:03] LABS: PTT 29.5 SEC (22.9-36.1); Prothrombin Time 12.7 SEC (12.0-14.7)
[2019-01-30] MEDS ORDERED: Iopamidol 370 76% 100 ML VIAL ONE (09:09)
[2019-01-30] MEDS ORDERED: Heparin 10,000 UNITS/1 ML VIAL ONE (10:05)
[2019-01-30] MEDS ORDERED: Protamine Sulfate 50 MG/5 ML VIAL ONE (10:06)
--- NOTE | 2019-01-30 10:42 | OP ---
DATE OF PROCEDURE: 01/30/2019 PREOPERATIVE DIAGNOSIS: Peripheral artery disease, ischemic rest pain right foot. PROCEDURE PERFORMED: Abdominal aortogram, bilateral lower extremity runoff with right external iliac artery stent using an 8 x 40 Innova stent posted with a 7 mm balloon. FINDINGS: The patient had occlusion of his left SFA just past its origin and reconstituted in the mid thigh. Profunda had diffuse atherosclerotic disease, but no critical lesion. The SFA was patent through the level of the knee, where there were 2-vessel runoff being the posterior tibial and peroneal. The anterior tibial was occluded and did not visualize. Left common and external iliac artery were calcified without significant disease. Right external iliac artery had about a 70% stenosis beginning at its origin and extending for about 3 cm. There was another 50% lesion more distally. The right common femoral artery was subtotally occluded filling the profunda and superficial femoral. Superficial femoral had moderate disease and was occluded at the adductor canal and then reconstituted, and there was runoff predominantly by a posterior tibial with less so of a peroneal, and once again, the anterior tibial was occluded. The patient had significant disease in the distal popliteal artery prior to the takeoff the anterior tibial and the tibioperoneal trunk had significant disease. Profunda on the right side had diffuse atherosclerotic disease that was significant. DESCRIPTION OF PROCEDURE: After prepping and draping, left common femoral artery was punctured under ultrasound guidance and a wire was inserted. Runoff of the left leg was obtained. Following which, the Contra catheter was introduced through the sheath, and abdominal aortogram and iliac runs were obtained. Contra catheter was then advanced over the bifurcation leaving the wire above the common femoral artery. Runoff of the right leg was obtained. Attempts to place after heparinization, a 10-[place] angled destination and then a 10-[place] straight destination were not successful, because the wire did not give enough support above the right common femoral artery. An angled [place] catheter and a stiff angled Glidewire were then utilized to obtain access into the right superficial femoral artery, where the 6-[place] Destination sheath was then advanced into the external iliac artery. Following this, the Innova was deployed after pulling the sheath back slightly, and then, ballooned with a 7 x 4 balloon. The patient tolerated the procedure well, with 53 mL of contrast and 14.2 minutes of fluoro and no IV sedation was given. Job ID: [id number]
[2019-01-30] MEDS ORDERED: hydrALAZINE 20 MG/ML VIAL ONE (10:54)
== END 2019-01-30 17:33 | disposition home or self-care (01) ==
LOC: CCL 06:57
PROVIDERS: ATTEND Thoracic Surgery (Cardiothoracic Vascular Surgery)
PROC: 047H3DZ Dilation of Right External Iliac Artery with Intraluminal Device, Percutaneous Approach (ICD-10-PCS; principal; 2019-01-30)
DX: E11.51 Type 2 diabetes mellitus with diabetic peripheral angiopathy without gangrene (principal); I70.221 Atherosclerosis of native arteries of extremities with rest pain, right leg; I70.213 Atherosclerosis of native arteries of extremities with intermittent claudication, bilateral legs; I10 Essential (primary) hypertension; E78.5 Hyperlipidemia, unspecified; I25.10 Atherosclerotic heart disease of native coronary artery without angina pectoris; Z87.891 Personal history of nicotine dependence; Z79.84 Long term (current) use of oral hypoglycemic drugs; Z79.899 Other long term (current) drug therapy
CPT/HCPCS: 37226; 76942; 80048; 85025; 85347; 85610; 85730; C1725; C1769; J0360; J1644; J2720

== ENCOUNTER 2019-02-03 05:52 | Inpatient (IN) | payer SELFPAY ==
--- NOTE | 2019-02-02 09:53 | HP ---
HISTORY OF PRESENT ILLNESS: This is a 58-year-old gentleman, referred to Dr. Hidalgo about 6 months ago for bilateral calf claudication. This is progressed on his right leg to rest pain in his foot. Due to insurance issues, he has been unable to get this handled. He is unable to rest at night, except if he sleeps in a chair. In October of this year, he underwent coronary artery bypass grafting and then earlier this week underwent stenting of his right external iliac artery in anticipation of a right common femoral artery endarterectomy. PAST MEDICAL HISTORY: Includes diabetes mellitus, hypertension, dyslipidemia, and coronary artery disease. He also has some benign prostatic hypertrophy. Additional medical problem, carotid artery disease with a greater than 70% left internal carotid artery stenosis. PAST SURGICAL HISTORY: Includes the coronary artery bypass grafting in October. CURRENT MEDICATIONS: Include, 1. Flomax 0.4. 2. Finasteride 5 a day. 3. Atorvastatin 40. 4. Metformin 1000 b.i.d. 5. Pletal 50 b.i.d. 6. Glipizide 5 daily. 7. Aspirin 325 a day. 8. Lisinopril/hydrochlorothiazide 20/25 a day. 9. Gabapentin 300 three times a day. 10. Coreg 6.25 b.i.d. 11. ?. ALLERGIES: HE HAS NO KNOWN ALLERGIES. SOCIAL HISTORY: He has not smoked in the last month. REVIEW OF SYSTEMS: The patient has nocturia x2. He has no symptoms to suggest previous TIA or stroke. PHYSICAL EXAMINATION: GENERAL: On examination, he is alert, cooperative gentleman, in no distress. CARDIAC: Regular rate and rhythm. No murmurs. LUNGS: Clear to auscultation. Sternum stable, healed. EXTREMITIES: Dependent rubor on his right foot with palpable femoral pulses bilaterally and no palpable distal pulses. His right posterior tibial has a Doppler signal of about 60 compared with a left dorsalis pedis of 80 and an arm pressure of 145. PLAN: Plan at this time is right foot femoral endarterectomy with consideration of a right femoral-popliteal bypass; however, with no usable vein due to bilateral thigh harvest from his coronary artery bypass grafting (his vein was not suitable in the distal thigh bilaterally and required proximal thigh harvesting). I think that Barbeau-Manan grafting below the knee with a known tibial disease requiring a posterior tibial graft that endarterectomy of the common femoral artery with profunda endarterectomy maybe the best initial approach for rest pain. He will probably have some lifestyle-limiting claudication, but if we can relieve his rest pain and avoid amputation that should be our initial goal. Job ID: [id number] [id number]
[2019-02-02 11:39] VITALS: BMI 29.8
[2019-02-03] MEDS ORDERED: Fentanyl 100 MCG/2 ML VIAL ONE (06:41)
[2019-02-03] MEDS ORDERED: Midazolam HCl 2 mg/2 ml Vial ONE (06:41)
[2019-02-03] MEDS ORDERED: Heparin 5,000 UNITS/ML VIAL ONE (07:12)
[2019-02-03] MEDS ORDERED: Protamine Sulfate 50 MG/5 ML VIAL ONE (07:12)
[2019-02-03] MEDS ORDERED: Bupivacaine/Epinephrine 0.25% 30 ML VIAL ONE (10:17)
[2019-02-03] MEDS ORDERED: Ondansetron HCl/PF 4 MG/2 ML Vial IVP PRN (11:09)
[2019-02-03] MEDS ORDERED: Fentanyl 100 MCG/2 ML VIAL SLOW IVP PRN ×2 (11:56)
[2019-02-03] MEDS ORDERED: Insulin Regular 300 UNITS/3 ML VIAL SC PRN (11:56)
[2019-02-03] MEDS ORDERED: HYDROcodone/Acetaminophen 5/325 mg Tablet PO PRN (11:56)
[2019-02-03] MEDS ORDERED: Ondansetron PF 4 MG/2 ML Vial IVP PRN (11:56)
[2019-02-03] MEDS ORDERED: Acetaminophen 325 MG TAB PO PRN (11:56)
[2019-02-03] MEDS: CEFAZOLIN 2 GM in Premix Bag 1 BAG IVPB SCH ×2 (13:46→21:17)
[2019-02-03] MEDS: Lactated Ringer's 1,000 ML IV SCH (13:52)
[2019-02-03] MEDS: HYDROcodone/Acetaminophen 5/325 mg Tablet PO PRN (13:52)
[2019-02-03] MEDS ORDERED: Lidocaine 1% PF 5 ML VIAL ONE (16:45)
[2019-02-03] MEDS ORDERED: PHENYLEPHRINE-NS 100 MCG/ML 10 ML SYRINGE ONE (16:45)
[2019-02-03] MEDS ORDERED: PROPOFOL 200 MG/20 ML VIAL ONE (16:45)
[2019-02-03] MEDS ORDERED: Ketorolac Tromethamine 30 MG/ML VIAL ONE (16:45)
[2019-02-03] MEDS ORDERED: Ondansetron PF 4 MG/2 ML Vial ONE (16:45)
[2019-02-03] MEDS ORDERED: Heparin 10,000 UNITS/ 10 ML VIAL ONE (16:45)
[2019-02-03] MEDS ORDERED: Rocuronium Bromide 10 MG/ML (10ML VIAL) ONE (16:45)
[2019-02-03] MEDS: Carvedilol 6.25 MG TAB PO SCH (16:46)
[2019-02-03] MEDS ORDERED: Atorvastatin Calcium 40 MG TAB PO SCH (21:00)
[2019-02-03] MEDS: Lisinopril 10 MG TAB PO SCH (21:16)
[2019-02-03] MEDS: Gabapentin 300 MG CAP PO SCH (21:16)
[2019-02-04 04:26] LABS: #Eosinphils 0.1 thou/uL (0.0-0.7); #Lymphocytes 2.5 thou/uL (1.20-3.40); #Monocytes 1.1 thou/uL (0.11-0.59); #Neutrophils 7.3 thou/uL (1.40-6.50); %Basophils 0.4 % (0.0-1.0); %Eosinophils 1.1 % (0.0-10.0); %Lymphocytes 22.4 % (21.0-51.0); %Monocytes 9.7 % (0.0-10.0); %Neutrophils 66.5 % (42.0-75.0); Hemoglobin 11.7 g/dL (14.0-18.0); Mean Corpuscular HGB CONC 33.5 g/dL (32.0-36.0); Mean Corpuscular Hemoglobin 31.3 pg (27.0-31.0); Mean Corpuscular Volume 93.4 fL (78.0-98.0); Mean Platelet Volume 7.6 fL (7.4-10.4); Platelet Count 191 thou/uL (130-400); RBC Distribution Width 12.2 % (11.5-14.5); Red Blood Cell (RBC) Count 3.73 mill/uL (4.70-6.10)
[2019-02-04] MEDS: CEFAZOLIN 2 GM in Premix Bag 1 BAG IVPB SCH (05:41)
[2019-02-04] MEDS: HYDROcodone/Acetaminophen 5/325 mg Tablet PO PRN (05:46)
[2019-02-04 07:27] VITALS: BP 167/89; TEMP 97.7
[2019-02-04] MEDS ORDERED: metFORMIN 500 MG TAB PO SCH (08:00)
[2019-02-04] MEDS: Carvedilol 6.25 MG TAB PO SCH (08:06)
[2019-02-04] MEDS: Gabapentin 300 MG CAP PO SCH (08:06)
[2019-02-04] MEDS: Lactated Ringer's 1,000 ML IV SCH (08:07)
[2019-02-04] MEDS: Lisinopril 10 MG TAB PO SCH (08:07)
[2019-02-04] MEDS ORDERED: Finasteride 5 MG TAB PO SCH (09:00)
[2019-02-04] MEDS ORDERED: Tamsulosin HCl 0.4 MG CAP PO SCH (09:00)
[2019-02-04] MEDS ORDERED: Aspirin Chewable 81 MG TAB PO SCH (09:00)
--- NOTE | 2019-02-04 20:38 | DIS ---
DATE OF ADMISSION: 02/03/2019 DATE OF DISCHARGE: 02/04/2019 HOSPITAL COURSE: The patient was admitted with ischemic rest pain right foot and underwent extended right common femoral endarterectomy and a separate deep femoral endarterectomy, both with patches. Postoperatively, he rested well, was ambulating the halls. The morning after surgery, he will be discharged home on his admitting medicines with no prescriptions. Discharge and followup instructions with particular attention to wound care of his groin have been given. We will follow up in 2-3 weeks. Job ID: [id number]
--- NOTE | 2019-02-06 09:30 | OP ---
DATE OF PROCEDURE: 02/03/2019 PREOPERATIVE DIAGNOSIS: Ischemic rest pain in right foot with extended right common and deep profunda femoral endarterectomies with a bovine pericardial patch. ANESTHESIA: General. ESTIMATED BLOOD LOSS: 100 to 150. DESCRIPTION OF PROCEDURE: After adequate anesthesia had been obtained, the patient was prepped and draped. Incision was made overlying the palpable femoral pulse. Perhaps, it would be better to say that the femoral artery cord was palpable. Dissection was then carried down and it was somewhat deeper than anticipated, but the common femoral artery was isolated. Arterial branches that coursed over the anterior aspect were clipped and divided. The circumflex femoral arteries were encircled with a heavy silk tie and the external iliac artery was mobilized enough to allow clamp placement. Following this, the superficial femoral artery was dissected out for about 3 cm and then the deep system was dissected out rather tediously, ligating venous branches to allow access well down past the bifurcation on both main branches. Following heparinization, clamps were applied and loops applied in some of the branches distally, and 10 blade was used to incise the common femoral artery. The lumen was isolated, and scissors were used to extend the arteriotomy up onto the superficial femoral artery for about 2.5 cm as well as just proximal on the common femoral artery to the circumflex femoral vessels. Following this, an endarterectomy was performed. The orifice of the profunda femoral artery was dissected from the plaque from inside. Following this, a separate arteriotomy was made for about 2.5 cm on the profunda branch extending distally into one of its branch vessels. There was still palpable calcification distally to the arteriotomy. Endarterectomy of the profunda femoral as well as orifice of its branches was carried out. The bovine pericardial patch was then used to patch the profunda arteriotomy. Following this, attention was turned to the common femoral artery, which had been endarterectomized throughout, and a bovine patch was used here. Following this, closure with a 6-0 Prolene, the area was thoroughly irrigated with heparin saline. Any potential leaks were controlled. Following which, flow was restored retrograde initially and then antegrade. Protamine was given to partially reverse the heparin and after obtaining good hemostasis, the wounds were closed with two layers of [id number] Vicryl suture and then the skin was closed. 0.25% Marcaine was used to infiltrate the subcutaneous tissues and the patient is to be taken to the recovery room with good capillary refill in his toes. Palpable pulses will not be present due to his occluded SFA distally as well as tibioperoneal disease. Job ID: [id number]
== END 2019-02-04 11:03 | disposition home or self-care (01) | DRG 254 ==
LOC: SURG A 05:52 → SJJU 12:40 → EDSTATUS 12:45
PROVIDERS: ADMIT Thoracic Surgery (Cardiothoracic Vascular Surgery); ATTEND Thoracic Surgery (Cardiothoracic Vascular Surgery)
PROC: 04CK0ZZ Extirpation of Matter from Right Femoral Artery, Open Approach (ICD-10-PCS; principal; 2019-02-03)
PROC: 04UK0KZ Supplement Right Femoral Artery with Nonautologous Tissue Substitute, Open Approach (ICD-10-PCS; 2019-02-03)
DX: I70.213 Atherosclerosis of native arteries of extremities with intermittent claudication, bilateral legs (principal); E11.9 Type 2 diabetes mellitus without complications; I10 Essential (primary) hypertension; E78.5 Hyperlipidemia, unspecified; I25.10 Atherosclerotic heart disease of native coronary artery without angina pectoris; N40.0 Benign prostatic hyperplasia without lower urinary tract symptoms; Z95.1 Presence of aortocoronary bypass graft; Z79.84 Long term (current) use of oral hypoglycemic drugs; Z79.82 Long term (current) use of aspirin; Z79.899 Other long term (current) drug therapy
CPT/HCPCS: 36415; 36416; 82947; 85025; J0690; J1642; J1644; J1885; J2001; J2250; J2405; J2704; J2720; J3010

== ENCOUNTER 2019-03-21 07:03 | Outpatient (CLI) | payer SELFPAY ==
[2019-03-21] MEDS ORDERED: Iopamidol 370 76% 100 ML VIAL ONE (09:59)
--- NOTE | 2019-03-21 11:10 | CT ---
CT ANGIOGRAM NECK: HISTORY: Abnormal carotid ultrasound. Preoperative exam. Evaluate for stenosis/occlusion. COMPARISON: None. TECHNIQUE: A CT angiogram of the neck is performed in the axial plane. Three-dimensional reformatted images are submitted for interpretation. FINDINGS: The visualized brain parenchyma is unremarkable. There is adequate aeration of the visualized sinuses and mastoid air cells. The visualized calvarium is intact. The aerodigestive tract is patent. No mucosal abnormality. Limited evaluation of the oral cavity due to minimal beam attenuation artifact from the mandible. No obvious masses in the oral cavity. The mid line fatty raphe of the tongue is preserved. There is fullness of the left and right palatine tonsils , nonspecific. No evidence of a peritonsillar abscess. The parapharyngeal fat is preserved. Symmetric attenuation of the paraspinal muscles and the sternocleidomastoid muscles. Symmetric attenuation of the parotid glands and the submandibular gland. Appropriate attenuation of t he thyroid gland. There are scattered nonspecific, nonenlarged bilateral soft tissue neck lymph nodes. The upper mediastinum is unremarkable. Chronic changes in the visualized lung parenchyma. Cervical spine vertebral body height is maintained. There is no fracture. Straightening of normal cer vical lordosis with moderate degenerative change at C2-C3, C3-C4 an C4-C5. There are varying degrees of central canal stenosis and neural foraminal narrowing on the basis of degenerative change. CT ANGIOGRAM: The visualized ascending thoracic aorta, aortic arch and descending thoracic aorta have appropriate enhancement and luminal diameter. RIGHT CAROTID: The right innominate artery origin has appropriate enhancement and luminal diameter. T he right common carotid artery demonstrates mild stenosis proximally. The mid and distal right common carotid artery have appropriate enhancement and luminal diameter. There is a calcified plaque at the right carotid bifurcation with extension of calcified plaque into the origin of the internal carotid artery and proximal internal carotid artery as well as the origin of the external carotid artery. Th ere is short segment moderate stenosis involving the proximal right internal carotid artery with a trevin sumeet diameter of 2.3 mm. The mid to distal right internal carotid artery has appropriate enhancement and luminal diameter. LEFT CAROTID: The left carotid artery origin has appropriate enhancement and luminal diameter. Minima l atherosclerotic disease. Small foci of calcified plaque without significant stenosis in the mid to distal left common carotid artery. There is near complete occlusion of the left carotid bifurcation w ith a string sign (sagittal image 75, series 301). There is moderate short segment stenosis just prox imal to the string sign. The mid and distal left internal carotid artery have appropriate enhancement and luminal diameter. The visualized subclavian arteries are unremarkable. There is calcified plaque at the origin of both vertebral arteries with presumed moderate right and mild left vertebral artery stenosis. The remainde r of the cervical vertebral arteries is patent. The left vertebral artery is slightly more prominent than the contralateral side. Limited evaluation of the intracranial internal carotid arteries and vertebral arteries is grossly un remarkable. IMPRESSION: 1. Moderate stenosis of the right internal carotid artery and carotid bifurcation due to calcified an d non-calcified plaque. 2. Severe stenosis with near complete occlusion and resultant string sign in the left carotid bifurca tion. There is moderate stenosis in the proximal left internal carotid artery. POS: JEREMIAS
== END 2019-03-21 07:04 | disposition home or self-care (01) ==
LOC: CT 07:03
PROVIDERS: ATTEND Thoracic Surgery (Cardiothoracic Vascular Surgery)
DX: I65.23 Occlusion and stenosis of bilateral carotid arteries (principal)
CPT/HCPCS: 70498; Q9967

== ENCOUNTER 2019-03-29 08:36 | Outpatient (CLI) | payer OTHER, SELFPAY ==
[2019-03-29 10:25] LABS: Hemoglobin 12.8 g/dL (14.0-18.0); Mean Corpuscular Hemoglobin 31.3 pg (27.0-31.0); Mean Corpuscular Volume 94.9 fL (78.0-98.0); Mean Platelet Volume 8.1 fL (7.4-10.4); Platelet Count 221 thou/uL (130-400); RBC Distribution Width 11.7 % (11.5-14.5); White Blood Cell (WBC) Count 8.6 thou/uL (4.8-10.8)
[2019-03-29 10:42] LABS: Anion Gap 15 mmol/L (10-20); BUN (Urea Nitrogen) 14 mg/dL (8.4-25.7); Calc. Creatinine Clearance 0 mL/min (70-130); Calcium 9.5 mg/dL (7.8-10.44); Carbon Dioxide 27 mmol/L (22-29); Chloride 96 mmol/L (98-107); Estimated GFR-MDRD 73; Glucose 321 mg/dL (70-105); Potassium 4.2 mmol/L (3.5-5.1); Sodium 134 mmol/L (136-145)
== END 2019-03-29 08:37 | disposition home or self-care (01) ==
LOC: LABBT 08:36
PROVIDERS: ATTEND Thoracic Surgery (Cardiothoracic Vascular Surgery)
DX: Z01.818 Encounter for other preprocedural examination (principal); I65.29 Occlusion and stenosis of unspecified carotid artery
CPT/HCPCS: 80048; 85027; 93005; 93010

== ENCOUNTER 2019-03-29 09:00 | Inpatient (IN) | payer OTHER, SELFPAY ==
[2019-03-30] MEDS ORDERED: Midazolam HCl 2 mg/2 ml Vial ONE (06:46)
[2019-03-30] MEDS ORDERED: Protamine Sulfate 50 MG/5 ML VIAL ONE (06:47)
[2019-03-30] MEDS ORDERED: Heparin 5,000 UNITS/ML VIAL ONE (06:47)
[2019-03-30] MEDS ORDERED: Albuterol Sulfate 1.25 MG/3 ML NEB ONE (07:14)
[2019-03-30] MEDS ORDERED: Fentanyl 100 MCG/2 ML VIAL ONE ×2 (07:15→10:07)
--- NOTE | 2019-03-30 08:11 | HP ---
HISTORY OF PRESENT ILLNESS: This is a 58-year-old gentleman admitted today, 03/30/2019 for left carotid endarterectomy. He had undergone coronary bypass grafting in October of this year and followup ultrasound demonstrated a markedly elevated velocities in his left internal carotid artery. A subsequent CT scan showed near total occlusion of this vessel. He is now being admitted for elective left carotid endarterectomy. PAST MEDICAL HISTORY: Includes, diabetes mellitus, hypertension, dyslipidemia, and peripheral vascular disease. PAST SURGICAL HISTORY: Coronary bypass grafting in 10/30, right femoral endarterectomy on 02/03/2019. 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 He is . He is a nonsmoker, although was smoking up until his coronary bypass surgery. ALLERGIES: HE HAS NO KNOWN ALLERGIES. MEDICATIONS: Include, 1. Flomax. 2. Finasteride. 3. Atorvastatin 40. 4. Metformin 1000 b.i.d. 5. Pletal 50 mg b.i.d. 6. Glipizide XL 5 daily. 7. Aspirin 325 a day. 8. Lisinopril 20/25 two tablets once a day. 9. Gabapentin 300 b.i.d. 10. Coreg 6.25 b.i.d. PHYSICAL EXAMINATION: VITAL SIGNS: The patient is 5 feet 11 inches, overweight at 216 pounds. Blood pressure 130/70. NECK: Soft carotid bruits. LUNGS: Clear to auscultation. CARDIAC: Regular rate and rhythm. No murmurs. ABDOMEN: Obese, nontender. EXTREMITIES: Healed right femoral endarterectomy scar. Palpable femoral pulses bilaterally. PLAN: At this time is left carotid endarterectomy and informed consent has been obtained. Job ID: [id number]
[2019-03-30] MEDS ORDERED: PHENYLEPHRINE-NS 100 MCG/ML 10 ML SYRINGE ONE (09:01)
[2019-03-30] MEDS ORDERED: Fentanyl 100 MCG/2 ML VIAL SLOW IVP PRN (11:03)
[2019-03-30] MEDS ORDERED: Insulin Regular 300 UNITS/3 ML VIAL SC PRN (11:03)
[2019-03-30] MEDS ORDERED: Phenylephrine 10 MG/NS 250 ML 250 ML IVPB PRN (11:03)
[2019-03-30] MEDS ORDERED: Acetaminophen 325 MG TAB PO PRN (11:03)
[2019-03-30] MEDS ORDERED: Ondansetron PF 4 MG/2 ML Vial IVP PRN (11:03)
[2019-03-30] MEDS ORDERED: Norepinephrine 8 MG/0.9% NS 250 ML IVPB PRN (11:03)
[2019-03-30] MEDS ORDERED: HYDROcodone/Acetaminophen 5/325 mg Tablet PO PRN (11:03)
[2019-03-30] MEDS ORDERED: Nitroglycerin 50 MG/250 ML BOT 250 ML IVPB PRN (11:03)
[2019-03-30] MEDS ORDERED: Sodium Chloride 0.9% 1,000 ML IV SCH (11:03)
[2019-03-30 11:13] VITALS: BMI 31.0
[2019-03-30] MEDS ORDERED: Norepinephrine 8 MG in Dextrose 5% in Water 242 ML IVPB PRN (11:14)
[2019-03-30] MEDS: Fentanyl 100 MCG/2 ML VIAL SLOW IVP PRN ×2 (11:30→15:44)
[2019-03-30] MEDS: HYDROcodone/Acetaminophen 5/325 mg Tablet PO PRN ×2 (14:39→19:59)
[2019-03-30] MEDS: CEFAZOLIN 2 GM in Premix Bag 1 BAG IVPB SCH ×2 (14:41→22:06)
--- NOTE | 2019-03-30 15:28 | OP ---
DATE OF PROCEDURE: 03/30/2019 PREOPERATIVE DIAGNOSIS: Critical left carotid stenosis. POSTOPERATIVE DIAGNOSIS: Critical left carotid stenosis. PROCEDURE PERFORMED: Left carotid endarterectomy with patch angioplasty. ANESTHESIA: General. ESTIMATED BLOOD LOSS: Less than 100. DESCRIPTION OF PROCEDURE: After adequate anesthesia had been obtained, roll was placed, head turned to the right, and table tilted to the right. The patient was then prepped and draped after ultrasound had been utilized. Incision was made and that was carried through the platysma, rotating sternocleidomastoid muscle laterally. The vagus nerve was identified and avoided. Hypoglossal nerve was not visualized. Multiple facial veins were ligated and divided. The vessel was quite deep in the neck and extended superiorly a good distance. After control with loops had been obtained, the patient was given 7500 of heparin, and after a good ACT levels, clamps were applied and arteriotomy performed. A 10-Maori shunt was then placed, following which endarterectomy was performed. It was rather densely adherent to the posterior wall of the carotid. 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 Following removal of the plaque, it was satisfactory tapering distally. The area was thoroughly irrigated and a patch was used to close the arteriotomy. Prior to completing the suture line, the shunt was removed. Vessels backflushed and forward flushed and flow was then restored up the external and then internal carotid artery. Protamine was given to partially reverse the heparin, and after obtaining good hemostasis, the wound was irrigated and closed in layers. The patient is to be taken to the recovery room in guarded condition. Job ID: [id number]
[2019-03-30] MEDS: Carvedilol 6.25 MG TAB PO SCH (17:10)
[2019-03-30] MEDS: metFORMIN 500 MG TAB PO SCH (17:11)
[2019-03-30] MEDS ORDERED: Tamsulosin HCl 0.4 MG CAP PO SCH (21:00)
[2019-03-30] MEDS ORDERED: Atorvastatin Calcium 40 MG TAB PO SCH (21:00)
[2019-03-31 07:10] VITALS: TEMP 98
[2019-03-31] MEDS: CEFAZOLIN 2 GM in Premix Bag 1 BAG IVPB SCH (07:16)
[2019-03-31] MEDS: metFORMIN 500 MG TAB PO SCH (07:16)
[2019-03-31 07:17] VITALS: BP 139/70
[2019-03-31] MEDS: Carvedilol 6.25 MG TAB PO SCH (07:17)
[2019-03-31] MEDS ORDERED: Aspirin Chewable 81 MG TAB PO SCH (09:00)
--- NOTE | 2019-03-31 11:05 | DIS ---
DATE OF ADMISSION: 03/30/2019 DATE OF DISCHARGE: 03/31/2019 The patient was admitted for a critical left internal carotid artery stenosis - asymptomatic. He underwent left carotid endarterectomy and beside some left-sided headache perioperatively, he did well. Neurologic exam was baseline. He will be discharged home to resume his home medications and follow up with me in 2 to 3 weeks. Job ID: [id number]
[2019-03-31] MEDS ORDERED: FLU VACC QS2019-20(6MOS UP)/PF 60 MCG/0.5 ML SYRINGE IM ONE (11:30)
== END 2019-03-31 08:50 | disposition home or self-care (01) | DRG 39 ==
LOC: SURG A 03-30 05:41 → EDSTATUS 03-30 09:00 → CCU 03-30 10:21
PROVIDERS: ADMIT Thoracic Surgery (Cardiothoracic Vascular Surgery); ATTEND Thoracic Surgery (Cardiothoracic Vascular Surgery)
PROC: 03CL0ZZ Extirpation of Matter from Left Internal Carotid Artery, Open Approach (ICD-10-PCS; principal; 2019-03-30)
PROC: 03UL0KZ Supplement Left Internal Carotid Artery with Nonautologous Tissue Substitute, Open Approach (ICD-10-PCS; 2019-03-30)
DX: I65.22 Occlusion and stenosis of left carotid artery (principal); R51 Headache; I10 Essential (primary) hypertension; E78.5 Hyperlipidemia, unspecified; E11.51 Type 2 diabetes mellitus with diabetic peripheral angiopathy without gangrene; Z95.1 Presence of aortocoronary bypass graft; Z79.4 Long term (current) use of insulin
CPT/HCPCS: 36415; 36416; J0690; J1642; J1644; J2250; J2720; J3010

== ENCOUNTER 2021-09-11 15:15 | Inpatient (IN) | payer OTHER, SELFPAY ==
[2021-09-11 14:42] VITALS: BMI 29.8
[2021-09-12] MEDS ORDERED: Heparin 5,000 UNITS/ML VIAL ONE (06:28)
[2021-09-12] MEDS ORDERED: Protamine Sulfate 250 MG/25 ML VIAL ONE (06:28)
[2021-09-12] MEDS ORDERED: Fentanyl 100 MCG/2 ML VIAL ONE ×3 (06:45→14:31)
[2021-09-12] MEDS ORDERED: ceFAZolin (BATCH) 2 GM/100 ML BAG ONE (07:07)
[2021-09-12] MEDS ORDERED: Phenylephrine 10 MG/ML VIAL ONE (07:25)
[2021-09-12] MEDS ORDERED: PROPOFOL 200 MG/20 ML VIAL ONE (07:29)
[2021-09-12] MEDS ORDERED: Rocuronium Bromide 10 MG/ML (10ML VIAL) ONE (07:29)
[2021-09-12] MEDS ORDERED: Labetalol HCl 100 MG/20 ML VIAL ONE (07:29)
[2021-09-12] MEDS ORDERED: Vecuronium 10 MG VIAL ONE (07:29)
[2021-09-12] MEDS ORDERED: Ondansetron PF 4 MG/2 ML Vial ONE (07:29)
[2021-09-12] MEDS ORDERED: Lidocaine 1% PF 5 ML VIAL ONE (07:29)
[2021-09-12] MEDS ORDERED: Glycopyrrolate 0.2 MG/ML 5 ML SYRINGE ONE (07:29)
[2021-09-12] MEDS ORDERED: PHENYLEPHRINE-NS 100 MCG/ML 10 ML SYRINGE ONE (07:29)
[2021-09-12] MEDS ORDERED: Heparin 10,000 UNITS/ 10 ML VIAL ONE (09:24)
[2021-09-12] MEDS ORDERED: Protamine Sulfate 50 MG/5 ML VIAL ONE (10:13)
[2021-09-12] MEDS ORDERED: Ondansetron PF 4 MG/2 ML Vial IVP PRN (10:54)
[2021-09-12] MEDS ORDERED: Insulin Regular 300 UNITS/3 ML VIAL SC PRN (10:54)
[2021-09-12] MEDS ORDERED: HYDROcodone/Acetaminophen 5/325 mg Tablet PO PRN (10:54)
[2021-09-12] MEDS ORDERED: Fentanyl 100 MCG/2 ML VIAL SLOW IVP PRN ×2 (10:54)
[2021-09-12] MEDS ORDERED: Acetaminophen 325 MG TAB PO PRN (10:54)
[2021-09-12] MEDS ORDERED: ceFAZolin 2 GM/Dextrose 50 ML 2 GM in Premix Bag 1 BAG IVPB SCH (11:00)
[2021-09-12] MEDS ORDERED: Promethazine HCl 25 MG/ML VIAL IVPB PRN (11:06)
[2021-09-12] MEDS ORDERED: Ondansetron HCl/PF 4 MG/2 ML Vial IVP PRN (11:06)
[2021-09-12] MEDS ORDERED: Promethazine HCl 25 MG/ML VIAL IM PRN (11:06)
[2021-09-12] MEDS: HYDROcodone/Acetaminophen 5/325 mg Tablet PO PRN ×2 (15:46→21:07)
[2021-09-12] MEDS: Gabapentin 300 MG CAP PO SCH ×2 (15:46→21:07)
[2021-09-12] MEDS: Sodium Chloride 0.9% 1,000 ML IV SCH (15:49)
[2021-09-12] MEDS: CEFAZOLIN 2 GM, Admixture Fee 1 EACH in Sodium Chloride 0.9% 100 ML IVPB SCH ×2 (16:02→21:12)
[2021-09-12] MEDS ORDERED: Non-Formulary Item 1 EACH (Metformin Hcl [Metformin Hcl] 1,000 MG Tablet) PO SCH (17:00)
[2021-09-12] MEDS: metFORMIN 500 MG TAB PO SCH (17:16)
[2021-09-12] MEDS: Carvedilol 6.25 MG TAB PO SCH (17:17)
[2021-09-13] MEDS: CEFAZOLIN 2 GM, Admixture Fee 1 EACH in Sodium Chloride 0.9% 100 ML IVPB SCH (05:08)
[2021-09-13 05:19] LABS: #Eosinphils 0.1 thou/uL (0.0-0.7); #Lymphocytes 1.8 thou/uL (1.20-3.40); #Monocytes 1.1 thou/uL (0.11-0.59); #Neutrophils 7.3 thou/uL (1.40-6.50); %Lymphocytes 17.5 % (21.0-51.0); %Monocytes 10.8 % (0.0-10.0); %Neutrophils 70.7 % (42.0-75.0); Mean Corpuscular HGB CONC 33.4 g/dL (32.0-36.0); Mean Corpuscular Hemoglobin 33.5 pg (27.0-31.0); Mean Platelet Volume 7.1 fL (7.4-10.4); Platelet Count 165 thou/uL (130-400); RBC Distribution Width 11.4 % (11.5-14.5); Red Blood Cell (RBC) Count 3.58 mill/uL (4.70-6.10); White Blood Cell (WBC) Count 10.3 thou/uL (4.8-10.8)
[2021-09-13 05:34] LABS: Anion Gap 10 mmol/L (10-20); BUN (Urea Nitrogen) 12 mg/dL (8.4-25.7); Calc. Creatinine Clearance 106 mL/min (70-130); Calcium 8.1 mg/dL (7.8-10.44); Carbon Dioxide 26 mmol/L (22-29); Chloride 104 mmol/L (98-107); Glucose 138 mg/dL (70-105); Potassium 4.1 mmol/L (3.5-5.1); Sodium 136 mmol/L (136-145)
[2021-09-13] MEDS ORDERED: Losartan 25 MG TAB PO SCH (09:00)
[2021-09-13] MEDS ORDERED: Empagliflozin 25 MG TAB PO SCH (09:00)
[2021-09-13] MEDS ORDERED: Aspirin Chewable 81 MG TAB PO SCH (09:00)
[2021-09-13] MEDS ORDERED: Non-Formulary Item 1 EACH (Linagliptin [Tradjenta] 5 MG Tablet) PO SCH (09:00)
[2021-09-13] MEDS ORDERED: Alogliptin 25 MG TAB PO SCH (09:00)
[2021-09-13] MEDS ORDERED: Hydrochlorothiazide 25 MG TAB PO SCH (09:00)
[2021-09-13] MEDS ORDERED: Polyethylene Glycol 3350 17 GM Packet PO SCH (09:00)
[2021-09-13] MEDS ORDERED: Atorvastatin Calcium 40 MG TAB PO SCH (09:00)
[2021-09-13] MEDS ORDERED: Non-Formulary Item 1 EACH (Losartan/Hydrochlorothiazide [Losartan-Hctz 100-12.5 Mg Tab] 1 PO SCH (09:00)
[2021-09-13] MEDS: Carvedilol 6.25 MG TAB PO SCH (09:02)
[2021-09-13] MEDS: metFORMIN 500 MG TAB PO SCH (09:03)
[2021-09-13] MEDS: Gabapentin 300 MG CAP PO SCH (09:06)
[2021-09-13] MEDS: HYDROcodone/Acetaminophen 5/325 mg Tablet PO PRN (09:07)
[2021-09-13] MEDS: Sodium Chloride 0.9% 1,000 ML IV SCH (09:22)
[2021-09-13 12:21] VITALS: BP 133/77; TEMP 98.1
[2021-10-06 13:21] LABS: Actual Bicarbonate (HCO3a) 24.3 mEq/L (22-28); Analyzer IN Cardio OR; Base Excess (BEa) -0.3 mEq/L (-2.0 to +3.0); CO2 Tension 39.7 mmHg (35.0-45.0); Calcium, Ionized (arterial) 1.14 mmol/L (1.12-1.30); Carboxyhemoglobin (COHb) 1.1 gm% (0.0-3.0); Hemoglobin (Hb) 12.9 g/dL (14.0-18.0); O2 Tension (PaO2), arterial 90.5 mmHg (> 80.0); Potassium - ABG Lab 3.94 mmol/L (3.70-5.30); pH, Arterial 7.41 (7.35-7.45)
[2021-10-06 13:22] LABS: Puncture Site Arterial Line
== END 2021-09-13 12:34 | disposition home or self-care (01) | DRG 253 ==
LOC: SURG A 09-12 05:27 → PACU-TCU 09-12 06:44 → SURG B 09-12 14:57
PROVIDERS: ADMIT Thoracic Surgery (Cardiothoracic Vascular Surgery); ATTEND Thoracic Surgery (Cardiothoracic Vascular Surgery)
PROC: 04CL0ZZ Extirpation of Matter from Left Femoral Artery, Open Approach (ICD-10-PCS; principal; 2021-09-12)
PROC: B41JZZZ Fluoroscopy of Other Lower Arteries (ICD-10-PCS; 2021-09-12)
DX: E11.51 Type 2 diabetes mellitus with diabetic peripheral angiopathy without gangrene (principal); I25.110 Atherosclerotic heart disease of native coronary artery with unstable angina pectoris; Z20.822 Contact with and (suspected) exposure to COVID-19; I70.222 Atherosclerosis of native arteries of extremities with rest pain, left leg; I10 Essential (primary) hypertension; E78.5 Hyperlipidemia, unspecified; Z79.899 Other long term (current) drug therapy; Z79.84 Long term (current) use of oral hypoglycemic drugs; Z79.82 Long term (current) use of aspirin; Z87.891 Personal history of nicotine dependence; Z95.1 Presence of aortocoronary bypass graft
CPT/HCPCS: 36415; 36416; 76000; 80048; 82805; 85025; J0690; J1642; J1644; J1815; J2370; J2405; J2704; J2720; J3010; J3490

== ENCOUNTER 2021-12-09 16:42 | Outpatient (CLI) | payer SELFPAY ==
[2021-12-09 17:45] LABS: Hemoglobin 14.9 g/dL (13.5-17.5); Mean Corpuscular HGB CONC 34.2 g/dL (32.0-36.0); Mean Corpuscular Hemoglobin 31.4 pg (27.0-33.0); Mean Platelet Volume 10.1 fl (7.4-10.4); Platelet Count 202 10x3/uL (150-450); RBC Distribution Width 12.9 % (11.5-14.5); Red Blood Cell (RBC) Count 4.74 10x6/uL (4.32-5.72); White Blood Cell (WBC) Count 9.3 10x3/uL (3.5-10.5)
[2021-12-09 18:04] LABS: Anion Gap 15 mmol/L (10-20); BUN (Urea Nitrogen) 24 mg/dL (8.4-25.7); Calc. Creatinine Clearance 0 mL/min (70-130); Calcium 10.1 mg/dL (7.8-10.44); Carbon Dioxide 26 mmol/L (23-31); Chloride 101 mmol/L (98-107); Estimated GFR 73; Glucose 79 mg/dL (80-115); Potassium 4.5 mmol/L (3.5-5.1); Sodium 137 mmol/L (136-145)
== END 2021-12-09 16:43 | disposition home or self-care (01) ==
LOC: LABBT 16:42
PROVIDERS: ATTEND Thoracic Surgery (Cardiothoracic Vascular Surgery)
DX: Z01.812 Encounter for preprocedural laboratory examination (principal); I73.9 Peripheral vascular disease, unspecified; I51.9 Heart disease, unspecified; Z20.822 Contact with and (suspected) exposure to COVID-19
CPT/HCPCS: 80048; 85027; 87811

== ENCOUNTER 2021-12-09 17:00 | Inpatient (IN) | payer OTHER ==
[2021-12-12] MEDS ORDERED: Heparin 5,000 UNITS/ML VIAL ONE (06:38)
[2021-12-12] MEDS ORDERED: EPINEPHrine 1 MG/ML AMP ONE (06:38)
[2021-12-12] MEDS ORDERED: Bupivacaine 0.25% HCL 30 ML VIAL ONE (06:38)
[2021-12-12] MEDS ORDERED: Protamine Sulfate 50 MG/5 ML VIAL ONE (06:38)
[2021-12-12] MEDS ORDERED: Fentanyl 100 MCG/2 ML VIAL ONE ×3 (07:13→11:00)
[2021-12-12] MEDS ORDERED: CEFAZOLIN 2 GM VIAL ONE (07:34)
[2021-12-12] MEDS ORDERED: Sodium Chloride 0.9% 100 ML ONE (07:34)
[2021-12-12] MEDS ORDERED: Rocuronium Bromide 10 MG/ML (10ML VIAL) ONE (08:00)
[2021-12-12] MEDS ORDERED: Lidocaine 1% PF 5 ML VIAL ONE (08:00)
[2021-12-12] MEDS ORDERED: Dexamethasone 20 MG/5 ML VIAL ONE (08:00)
[2021-12-12] MEDS ORDERED: PROPOFOL 200 MG/20 ML VIAL ONE (08:00)
[2021-12-12] MEDS ORDERED: ePHEDrine 50 MG/ML VIAL ONE (08:00)
[2021-12-12] MEDS ORDERED: Labetalol HCl 100 MG/20 ML VIAL ONE (10:29)
[2021-12-12] MEDS ORDERED: hydrALAZINE 20 MG/ML VIAL ONE (10:29)
[2021-12-12] MEDS ORDERED: Insulin Regular 300 UNITS/3 ML VIAL SC PRN (11:33)
[2021-12-12] MEDS ORDERED: Ondansetron PF 4 MG/2 ML Vial IVP PRN (11:33)
[2021-12-12] MEDS ORDERED: HYDROcodone/Acetaminophen 5/325 mg Tablet PO PRN (11:33)
[2021-12-12] MEDS ORDERED: Sodium Chloride 0.9% 1,000 ML IV SCH (11:33)
[2021-12-12] MEDS ORDERED: Phenylephrine 40 MG in Sodium Chloride 0.9% 250 ML 250 ML IVPB PRN (11:33)
[2021-12-12] MEDS ORDERED: Acetaminophen 325 MG TAB PO PRN (11:33)
[2021-12-12] MEDS ORDERED: Lactated Ringer's 500 ML IV SCH ×2 (11:33→13:15)
[2021-12-12] MEDS ORDERED: Fentanyl 100 MCG/2 ML VIAL SLOW IVP PRN (11:33)
[2021-12-12] MEDS: HYDROcodone/Acetaminophen 5/325 mg Tablet PO PRN ×3 (12:30→22:28)
[2021-12-12] MEDS: niCARdipine 25 MG in Sodium Chloride 0.9% 250 ML 250 ML IVPB PRN ×3 (12:39→22:29)
[2021-12-12] MEDS ORDERED: Lactated Ringer's 1,000 ML IV SCH (12:45)
[2021-12-12] MEDS ORDERED: ceFAZolin 2 GM/Dextrose 50 ML 2 GM in Premix Bag 1 BAG IVPB SCH (15:00)
[2021-12-12] MEDS ORDERED: CEFAZOLIN 2 GM VIAL SLOW IVP SCH (16:00)
[2021-12-12] MEDS ORDERED: Carvedilol 6.25 MG TAB PO SCH (17:00)
[2021-12-13 05:53] VITALS: BMI 30.9
[2021-12-13] MEDS: HYDROcodone/Acetaminophen 5/325 mg Tablet PO PRN (07:45)
[2021-12-13] MEDS ORDERED: Carvedilol 6.25 MG TAB PO SCH ×2 (08:00→21:00)
[2021-12-13 08:07] VITALS: BP 152/73
[2021-12-13 08:28] VITALS: TEMP 96.6
[2021-12-13] MEDS ORDERED: Losartan 25 MG TAB PO SCH (09:00)
[2021-12-13] MEDS ORDERED: Empagliflozin 25 MG TAB PO SCH (09:00)
[2021-12-13] MEDS ORDERED: Atorvastatin Calcium 40 MG TAB PO SCH (09:00)
[2021-12-13] MEDS ORDERED: Clopidogrel Bisulfate 75 MG TAB PO SCH (09:00)
[2021-12-13] MEDS ORDERED: Hydrochlorothiazide 25 MG TAB PO SCH (09:00)
[2021-12-13] MEDS ORDERED: Aspirin Chewable 81 MG TAB PO SCH (09:00)
== END 2021-12-13 10:44 | disposition home or self-care (01) | DRG 39 ==
LOC: SURG A 12-12 05:46 → CCU 12-12 11:33
PROVIDERS: ADMIT Thoracic Surgery (Cardiothoracic Vascular Surgery); ATTEND Thoracic Surgery (Cardiothoracic Vascular Surgery)
PROC: 03CK0ZZ Extirpation of Matter from Right Internal Carotid Artery, Open Approach (ICD-10-PCS; principal; 2021-12-12)
PROC: 03UK0KZ Supplement Right Internal Carotid Artery with Nonautologous Tissue Substitute, Open Approach (ICD-10-PCS; 2021-12-12)
DX: I65.21 Occlusion and stenosis of right carotid artery (principal); Z95.1 Presence of aortocoronary bypass graft
CPT/HCPCS: 36416; 93005; 93010; 94640; C1713; C1768; C1776; J0171; J0360; J0690; J1642; J1644; J2720; J3010; J3490; J7050; J7120; J7620; S0020

== ENCOUNTER 2022-10-11 20:36 | Observation (INO) | payer OTHER ==
[2022-10-12] MEDS ORDERED: Ondansetron ODT 4 MG TAB PO PRN (00:13)
[2022-10-12] MEDS ORDERED: Ondansetron PF 4 MG/2 ML Vial IVP PRN (00:13)
[2022-10-12] MEDS ORDERED: Dextrose 50% Abboject 50 ML SYRINGE SLOW IVP PRN (00:15)
[2022-10-12] MEDS ORDERED: Dextrose 5% in Water 1,000 ML IV PRN (00:15)
[2022-10-12] MEDS ORDERED: Acetaminophen 500 MG TAB PO PRN (00:18)
[2022-10-12] MEDS: Sodium Chloride 0.9% 1,000 ML IV SCH ×2 (00:41→13:28)
[2022-10-12 03:17] VITALS: BMI 27.1
[2022-10-12 06:55] LABS: #Eosinphils 0.1 thou/uL (0.0-0.7); #Lymphocytes 2.5 thou/uL (1.20-3.40); #Monocytes 1.2 thou/uL (0.11-0.59); #Neutrophils 9.9 thou/uL (1.40-6.50); %Basophils 0.1 % (0.0-1.0); %Eosinophils 0.6 % (0.0-10.0); %Lymphocytes 18.3 % (21.0-51.0); %Monocytes 8.4 % (0.0-10.0); %Neutrophils 72.6 % (42.0-75.0); Hemoglobin 11.7 g/dL (14.0-18.0); Mean Corpuscular HGB CONC 33.5 g/dL (32.0-36.0); Mean Corpuscular Hemoglobin 29.6 pg (27.0-31.0); Mean Corpuscular Volume 88.2 fl (78.0-98.0); Mean Platelet Volume 7.3 fL (7.4-10.4); Platelet Count 305 10x3/uL (130-400); RBC Distribution Width 15.6 % (11.5-14.5); Red Blood Cell (RBC) Count 3.94 mill/uL (4.70-6.10); White Blood Cell (WBC) Count 13.7 10x3/uL (4.8-10.8)
[2022-10-12 07:14] LABS: Anion Gap 13 mmol/L (10-20); BUN (Urea Nitrogen) 17 mg/dL (8.4-25.7); Calc. Creatinine Clearance 120 mL/min (70-130); Calcium 8.9 mg/dL (7.8-10.44); Carbon Dioxide 24 mmol/L (23-31); Chloride 103 mmol/L (98-107); Estimated GFR 102; Glucose 102 mg/dL (80-115); Potassium 3.8 mmol/L (3.5-5.1); Sodium 136 mmol/L (136-145)
[2022-10-12] MEDS ORDERED: Bisacodyl 10 MG SUPP PR PRN (11:05)
[2022-10-12] MEDS ORDERED: Senokot S 8.6-50 MG TAB PO SCH (11:15)
[2022-10-12] MEDS ORDERED: Magnesium Citrate 300 ML BOT PO SCH (11:45)
[2022-10-12] MEDS ORDERED: GoLYTELY 4,000 ml Bottle PO SCH (15:00)
[2022-10-12] MEDS ORDERED: Mineral Oil ENEMA PR PRN (17:00)
[2022-10-12] MEDS: Senokot S 8.6-50 MG TAB PO SCH (20:31)
[2022-10-13] MEDS: Sodium Chloride 0.9% 1,000 ML IV SCH (05:54)
[2022-10-13] MEDS: Senokot S 8.6-50 MG TAB PO SCH (08:22)
[2022-10-13 12:29] VITALS: BP 163/80; TEMP 97.5
== END 2022-10-13 12:21 | disposition home or self-care (01) ==
LOC: T4-B 22:52
PROVIDERS: ADMIT Student in an Organized Health Care Education/Training Program; ATTEND Hospitalist
DX: K59.00 Constipation, unspecified (principal); R33.9 Retention of urine, unspecified; I25.10 Atherosclerotic heart disease of native coronary artery without angina pectoris; E11.51 Type 2 diabetes mellitus with diabetic peripheral angiopathy without gangrene; K64.4 Residual hemorrhoidal skin tags; Z79.02 Long term (current) use of antithrombotics/antiplatelets; Z79.82 Long term (current) use of aspirin; Z79.84 Long term (current) use of oral hypoglycemic drugs; Z79.899 Other long term (current) drug therapy; Z90.49 Acquired absence of other specified parts of digestive tract; Z95.1 Presence of aortocoronary bypass graft; Z95.820 Peripheral vascular angioplasty status with implants and grafts
CPT/HCPCS: 36415; 36416; 80048; 85025; G0378; J7050

== ENCOUNTER 2022-12-02 07:43 | Emergency (ER) | payer OTHER ==
[2022-12-02 08:19] LABS: #Eosinphils 0.1 thou/uL (0.0-0.7); #Monocytes 0.7 thou/uL (0.11-0.59); #Neutrophils 4.9 thou/uL (1.40-6.50); %Basophils 0.4 % (0.0-1.0); %Eosinophils 1.4 % (0.0-10.0); %Lymphocytes 25.7 % (21.0-51.0); %Monocytes 8.8 % (0.0-10.0); %Neutrophils 63.4 % (42.0-75.0); Hemoglobin 13.5 g/dL (14.0-18.0); Mean Corpuscular HGB CONC 31.3 g/dL (32.0-36.0); Mean Corpuscular Hemoglobin 26.7 pg (27.0-31.0); Mean Corpuscular Volume 85.5 fl (78.0-98.0); Mean Platelet Volume 9.9 fL (7.4-10.4); Platelet Count 256 10x3/uL (130-400); RBC Distribution Width 16.4 % (11.5-14.5); Red Blood Cell (RBC) Count 5.05 mill/uL (4.70-6.10); White Blood Cell (WBC) Count 7.7 10x3/uL (4.8-10.8)
[2022-12-02 08:37] LABS: Bacteria/HPF None Seen HPF (None Seen); Bilirubin Negative (Negative); Blood, Urine Negative (Negative); CAUTI Indications for Culture Pelvic or flank pain; Clarity Clear (Clear); Glucose, Urine (Dipstick) Greater than 1000 mg/dL (Negative); Ketone, Urine Negative (Negative); Leukocyte Negative Leu/uL (Negative); Nitrite Negative (Negative); Protein, Urine (Dipstick) Negative (Neg-Trace); RBC/HPF 0-3 HPF (0-3); Specific Gravity, Urine 1.025 (1.002-1.036); Squamous Epithelial 0-3 HPF (0-3); Urobilinogen Normal mg/dL (Less than 2); WBC/HPF 0-3 HPF (0-3); pH, Urine 5.5 (5.0-9.0)
[2022-12-02 08:38] LABS: Urine Culture Reflex No No
[2022-12-02 08:42] LABS: ALT (SGPT) 14 U/L (8-55); AST (SGOT) 17 U/L (5-34); Albumin 4.2 g/dL (3.4-4.8); Alkaline Phosphatase 71 U/L (40-110); Anion Gap 17 mmol/L (10-20); BUN (Urea Nitrogen) 23 mg/dL (8.4-25.7); Bilirubin, Total 0.3 mg/dL (0.2-1.2); Calc. Creatinine Clearance 0 mL/min (70-130); Calcium 9.5 mg/dL (7.8-10.44); Carbon Dioxide 21 mmol/L (23-31); Chloride 103 mmol/L (98-107); Estimated GFR 66; Globulin 3.6 g/dL (2.4-3.5); Glucose 282 mg/dL (80-115); Lipase 63 U/L (8-78); Potassium 4.8 mmol/L (3.5-5.1); Protein, Total 7.8 g/dL (5.8-8.1); Sodium 136 mmol/L (136-145)
[2022-12-02] MEDS ORDERED: Iopamidol-370 76% 500 ML MDV (1 ML CHARGE) ONE (12:23)
== END 2022-12-02 12:35 | disposition home or self-care (01) ==
LOC: ERS 07:43
DX: K55.069 Acute infarction of intestine, part and extent unspecified (principal); K92.2 Gastrointestinal hemorrhage, unspecified; E11.9 Type 2 diabetes mellitus without complications; I10 Essential (primary) hypertension; Z79.899 Other long term (current) drug therapy; Z79.82 Long term (current) use of aspirin
CPT/HCPCS: 74177; 80053; 81001; 82274; 83690; 85025; Q9967